=== PATIENT | female | born 1970 | race African-American/Black ===

== ENCOUNTER 2018-06-02 15:20 | Emergency (ER) | payer SELFPAY ==
[~2018-06-02] VITALS: Ht 175.3 cm; Wt 97.3 kg
[~2018-06-02 15:20] MED LIST: GLUCOPHAGE500 MG PO; INSULIN PEN; PRINIVIL10 MG PO
[2018-06-02 15:42] VITALS: BP 137/89; Ht 175.3 cm; Wt 97.3 kg
== END 2018-06-02 18:39 | disposition left against medical advice (07) ==
LOC: D.ER 15:20
DX: M54.9 Dorsalgia, unspecified (principal)

== ENCOUNTER → 2018-08-12 08:57 | Outpatient (CLI) | payer MEDICAID ==
[2018-06-02 15:42] VITALS: BMI 31.6
== END | disposition home or self-care (01) ==
LOC: D.HCCARDIO 08:57
DX: R07.89 Other chest pain (principal)

== ENCOUNTER 2018-08-16 16:20 | Emergency (ER) | payer MEDICAID ==
[~2018-08-16] VITALS: Ht 175.3 cm; Wt 95.5 kg
[2018-08-16 16:22] VITALS: Ht 175.3 cm; Wt 95.5 kg
[2018-08-16 17:10] LABS: BASOPHILS 0.3 % (0-2); EOSINOPHILS 0.7 % (0-7); HEMATOCRIT 36.9 % (36.0-48.0); HEMOGLOBIN 12.2 g/dL (12-16); IMMATURE GRANULOCYTES 0.1 % (0-5); LYMPHOCYTES 33.2 % (15-50); MCHC 33.1 g/dL (31.0-37.0); MCV 84.8 fL (80.0-100.0); MONOCYTES 6.7 % (2-11); PLATELET COUNT 197 10x3/uL (130-400); RBC 4.35 10x6/uL (4.00-5.40); WBC 9.2 10x3/uL (4.8-10.8)
[2018-08-16 17:20] LABS: INR 0.91 (0.85-1.17); PROTIME 11.8 SECONDS (11.6-15.0)
[2018-08-16 17:41] LABS: ALBUMIN 2.9 g/dL (3.4-5.0); ALKALINE PHOSPHATASE 186 U/L (46-116); ALT (SGPT) 12 U/L (10-68); BILIRUBIN - TOTAL 0.15 mg/dL (0.2-1.3); CALC OSMOLALITY 295 mosm/kg (275-300); CALCIUM 8.9 mg/dL (8.5-10.1); CARBON DIOXIDE 28.4 mmol/L (21.0-32.0); CHLORIDE - SERUM 100 mmol/L (98-107); CKMB 0.3 U/L (0.0-3.6); CREATINE KINASE 42 UL (21-215); CREATININE - SERUM 0.9 mg/dL (0.6-1.3); MAGNESIUM - SERUM 2.1 mg/dL (1.8-2.4); PROTEIN - SERUM 7.2 g/dL (6.4-8.2); SODIUM 137 mmol/L (136-145); TROPONIN-I < 0.017 ng/mL (0.000-0.060); UREA NITROGEN 12 mg/dL (7-18); eGFR NON AFRICAN AMERICAN 71 mL/min (90-120)
[2018-08-16 17:53] LABS: GLUCOSE 497 mg/dL (74-106)
[2018-08-16] MEDS ORDERED: ZOFRAN ODT4 MG/UDTAB PO (19:41)
[2018-08-16] MEDS ORDERED: BACLOFEN20 M1 PO (19:41)
[2018-08-16 21:55] VITALS: BP 106/71
== END 2018-08-16 21:55 | disposition home or self-care (01) ==
LOC: D.ER 16:20
PROVIDERS: Emergency Medicine
DX: R07.89 Other chest pain (principal); E11.8 Type 2 diabetes mellitus with unspecified complications; R06.02 Shortness of breath; F17.200 Nicotine dependence, unspecified, uncomplicated

== ENCOUNTER 2018-08-26 10:57 | Outpatient (CLI) | payer MEDICAID ==
[~2018-08-26] VITALS: Ht 175.3 cm; Wt 95.5 kg
--- NOTE | ~2018-08-26 | HEMODYNAMI ---
PATIENT:SORAYA GONZALEZ MEDICAL RECORD: [id number] : 74 LOCATION:[facility] ADMISSION DATE: 08/26/18 Generatedon:08/26/201814:38 Patient name: SORAYA GONZALEZ Patient #: [id number] SSN: : 1970 Date of study: 08/26/2018 Page: Of Hemodynamic Procedure Report Patient Data Patient Demographics Procedure consent was obtained First Name: SORAYA Gender: Female Last Name: CARLOS : 1970 Middle Initial: D Age: 48 year(s) Patient #: [id number] Race: Black Additional ID: [id number] Contact details [address]: [address] [place] [address] State: [place] City: [place] Zip code: [address] Past Medical History Allergies Allergen Reaction Date Comments Reported Aspirin 08/26/2018 Admission Admission Data Admission Date: 08/26/2018 Admission Time: 10:57 Height (in.): 69 BSA: 2.11 (m2) Height (cm.): 175.26 BMI: 31.07 (kg/m2) Weight (lbs.): 210.43 Weight (kg.): 95.45 Lab Results Lab Result Date: 08/26/2018 Lab Result Time: 0:00 Biochemistry Name Units Result Min Max BUN mg/dl 10 --(-*--)-- 7 18 Creatinine mg/dl 0.7 --(*---)-- 0.6 1.3 CBC Name Units Result Min Max Hemoglobin g/dl 12.8 -*(----)-- 13.5 17.5 Procedure Procedure Types Cath Procedure Diagnostic Procedure [facility] w/Coronaries PCI Procedure Coronary Stent Coronary Stent Initial Procedure Description Procedure Date Procedure Date: 08/26/2018 Procedure Start Time: 14:03 Procedure End Time: 14:33 Procedure Staff Name Function Alfred Nunez MD Performing Physician Quincy Moise RT Monitor Yamila Rivas RT Scrub Jim Watts RN Nurse Procedure Data Cath Procedure Fluoroscopy Diagnostic fluoroscopy Total fluoroscopy Time: 6.4 time: 6.4 min min Diagnostic fluoroscopy Total fluoroscopy dose: 549 dose: 549 mGy mGy Contrast Material Contrast Material Type Amount (ml) Isovue 300 115 Entry Location Entry Primary Successful Side Size Upsize Upsize Entry Closure Pete ccessful Closure Location (Fr) 1 (Fr) 2 (Fr) Remarks Device Remarks Radial Right 6 Fr Mechanical artery Short Compression Estimated blood loss: 10 ml Diagnostic catheters Device Type Used For End Catheter Placement DIAGNOSTIC Bagley 110cm 5 Procedure Fr catheter ([id number]) DIAGNOSTIC AR MOD 5Fr Procedure Catheter ([id number]) Procedure Complications No complications Procedure Medications Medication Administration Route Dosage Oxygen etCO2 Nasal cannula 3 l/min Heparin Flush Bag added to field 2 bags (1000units/500ml NS) 0.9% NaCl I.V. 100 ml/hr Lidocaine 2% added to field 20 Radial Cocktail added to field 1 syringe (Verapomil 2mg/Nitro 400mcg/Heparin 1500units) Fentanyl I.V. 50 mcg Versed I.V. 1 mg Fentanyl I.V. 50 mcg Versed I.V. 1 mg Radial Cocktail I.A. 1 syringe (Verapomil 2mg/Nitro 400mcg/Heparin 1500units) Fentanyl I.V. 50 mcg Fentanyl I.V. 50 mcg Heparin Bolus I.V. 9500 units Nitroglycerin IC/IA I.C. 100 mcg Versed I.V. 2 mg Brilinta P.O. 180 mg Hemodynamics Rest BSA: 2.11 (m2) HGB: 12.8 (g/dl) O2 Consumption: Estimated: 223.88 (ml/min) O2 Co nsumption indexed: Estimated:106.1 (ml/min/m) Heart Rate: 88 (bpm) Pressure Samples Time Site Value (mmHg) Purpose Heart Use Rate(bpm) 14:06 LV 114/-7,-3 Snapshot 94 14:08 AO 111/74(90) Snapshot 97 Gradients Valve Time Site Site Mean SEP/DFP Peak To Heart Use 1 2 (mmHg) (sec/min) Peak Rate (mmHg) (bpm) Aortic 14:06 LV AO 79 Aortic 14:06 LV AO 61 Snapshots Pre Cath Intra NCS Post Cath Vital Signs Time Heart Resp SPO2 etCO2 NIBP (mmHg) Rhythm Pain Sedation Rate (ipm) (%) (mmHg) Status Level (bpm) 13:46:41 104 16 97 0 169/106(142) NSR 0 (11) 10(A) , No pain 13:51:03 99 16 96 0 165/102(134) NSR 0 (11) 10(A) , No pain 13:55:19 91 17 97 40.5 147/99(127) NSR 0 (11) 10(A) , No pain 13:59:34 92 16 96 38.2 137/87(119) NSR 0 (11) 10(A) , No pain 14:03:43 92 17 96 47.2 143/90(122) NSR 0 (11) 10(A) , No pain 14:07:51 96 16 96 40.5 112/78(93) NSR 0 (11) 9(A) , No pain 14:11:57 97 17 94 40.4 118/80(96) NSR 0 (11) 9(A) , No pain 14:16:05 100 17 94 42.7 122/84(102) NSR 0 (11) 9(A) , No pain 14:20:08 98 17 95 46.4 109/78(92) NSR 0 (11) 9(A) , No pain 14:24:14 99 17 95 43.5 105/75(89) NSR 0 (11) 9(A) , No pain 14:28:18 100 16 96 47.2 122/79(104) NSR 0 (11) 9(A) , No pain 14:32:26 98 16 97 41.2 122/82(96) NSR 0 (11) 9(A) , No pain 14:35:37 101 17 90 39.7 124/86(106) NSR 0 (11) 9(A) , No pain Medications Time Medication Route Dose Verified Delivered Reason Not es Effectiveness by by 13:52:12 Oxygen etCO2 3 l/min Alfred Fernandez Per physician Nasal Enrique Watts RN cannula 13:52:21 Heparin Flush added 2 bags Alfred Fernandez used for Bag to Enrique Watts scheduling assistant (1000units/500ml field NS) 13:53:02 0.9% NaCl I.V. 100 Alfredmarcia Fernandez Per physician ml/hr Enrique Watts RN 13:53:13 Lidocaine 2% added 20ml Alfred Jim used for to vial Enrique Watts RN procedure field 13:53:38 Radial Cocktail added 1 Alfred Jim used for (Verapomil to syringe Enrique Watts RN procedure 2mg/Nitro field 400mcg/Heparin 1500units) 13:58:30 Fentanyl I.V. 50 mcg Alfred Jim for sedation Enrique Watts RN 13:58:34 Versed I.V. 1 mg Alfred Jim for sedation Enrique Watts RN 14:03:06 Fentanyl I.V. 50 mcg Alfred Jim for sedation Enrique Watts RN 14:03:09 Versed I.V. 1 mg Alfred Jim for sedation Enrique Watts RN 14:04:25 Radial Cocktail I.A. 1 Alfred Alfred for (Verapomil syringe Enrique Nunez MD vasodilation 2mg/Nitro 400mcg/Heparin 1500units) 14:06:27 Fentanyl I.V. 50 mcg Alfred Jim for sedation Enrique Watts RN 14:11:05 Fentanyl I.V. 50 mcg Alfred Jim for sedation Enrique Watts RN 14:13:30 Versed I.V. 2 mg Alfred Jim for sedation Enrique Watts RN 14:17:35 Heparin Bolus I.V. 9500 Alfred Jim for units Enrique Watts RN anticoagulation 14:23:07 Nitroglycerin I.C. 100 mcg Alfred Alfred for IC/IA Enrique Nunez MD vasodilation 14:32:42 Brilinta P.O. 180 mg Alfred Jim for Enrique Watts RN antiplatelet therapy Procedure Log Time Note 13:15:26 Diagnostic Cath status Elective 13:15:28 Signed procedure consent form obtained from patient. 13:31:26 Time tracking: Regular hours (M-F 7:00 - 5:00) 13:31:31 Plan of Care:Hemodynamics will remain stable., Cardiac rhythm will remain stable., Comfort level will be maintained., Respiratory function will remain adequate., Patient/ family verbilizes understanding of procedure., Procedure tolerated without complication., Recovers from procedure without complications.. 13:32:53 Quincy Moise RT(R) sent for patient. Start room use. 13:33:55 H&P Date Dictated: 07/29/2018 Within 30 days and on chart., H&P Addendum completed by physician on day of procedure. (MUST COMPLETE FOR ALL OUTPATIENTS). 13:34:03 Patient allergic to Aspirin 13:34:19 Patient Height : 69 inches 13:34:21 Patient Weight : 210.43 lbs 13:36:51 Lab Result : Creatinine 0.7 mg/dl 13:36:51 Lab Result : BUN 10 mg/dl 13:36:51 Lab Result : Hemoglobin 12.8 g/dl 13:39:59 Patient received from Pre/Post Procedure Room to CCL 3 Alert and oriented. Tansferred to table in Supine position. 13:40:00 Warm blankets applied, and joseph hugger turned on for patient comfort. 13:40:01 Correct patient and procedure confirmed by team. 13:40:24 ECG and BP/O2 sat monitors applied to patient. 13:45:25 Vital chart was started 13:52:12 Oxygen 3 l/min etCO2 Nasal cannula was administered by Jim Watts RN; Per physician; 13:52:21 Heparin Flush Bag (1000units/500ml NS) 2 bags added to field was administered by Jim Watts RN; used for procedure; 13:52:47 Baseline sample Acquired. 13:52:50 Rhythm: sinus rhythm 13:52:51 Full Disclosure recording started 13:52:52 Pre-procedure instructions explained to patient. 13:52:52 Pre-op teaching completed and patient verbalized understanding. 13:52:55 Family in waiting room. 13:52:56 Patient NPO since Midnight. 13:52:58 Is the patient allergic to Iodine/contrast media? No. 13:53:01 Is patient on blood thinner?No 13:53:02 0.9% NaCl 100 ml/hr I.V. was administered by Jim Watts RN; Per physician; 13:53:02 Patient diabetic? Yes. 13:53:03 If diabetic: On Metformin? Yes 13:53:05 If on Metformin: Last Dose? 08/25/2018 13:53:13 Lidocaine 2% 20ml vial added to field was administered by Jim Watts RN; used for procedure; 13:53:38 Radial Cocktail (Verapomil 2mg/Nitro 400mcg/Heparin 1500units) 1 syringe added to field was administered by Jim Watts RN; used for procedure; 13:53:43 Patient not . Patient has had hysterectomy. 13:53:55 Previous problem with sedation/anesthesia? No ? 13:54:08 Snore? Yes 13:54:09 Sleep apnea? No 13:54:10 Deviated septum? No 13:54:10 Opens mouth fully? Yes 13:54:12 Sticks out tongue? Yes 13:54:13 Airway obstruction? No ? 13:54:15 Dentures? No ? 13:54:18 Pre procedure: right dorsailis pedis pulse 1+ Palpable, but thready & weak; easily obliterated 13:54:20 Modified Bo's test Ulnar < 7 seconds 13:54:23 Patient pain scale 0/10 ?. 13:54:26 IV patent on arrival in left hand with 0.9% NaCl at [facility]. 13:54:28 Lab results completed and on chart. 13:54:31 Right Radial & Right Groin area was prepped with chlora-prep and draped in sterile fashion 13:54:32 Alarms reviewed by R. N. 13:54:33 Sharps counted by scrub and verified by R.N. 13:54:36 Use device set Radial Dx or PCI 13:54:38 Tegaderm 4 x 4 (1626W) opened to sterile field. 13:54:38 ACIST Manifold (89140) opened to sterile field. 13:54:40 ACIST Hand Control (40433) opened to sterile field. 13:54:41 ACIST Syringe (27976) opened to sterile field. 13:54:41 Medline Cath Pack ([id number]) opened to sterile field. 13:54:41 Bag Decanter (2001S) opened to sterile field. 13:54:42 DIAGNOSTIC WIRE .035 260cm J wire (532389) opened to sterile field. 13:54:42 MBrace Wrist Support ([id number]) opened to sterile field. 13:54:43 NEEDLE Cook 21G 4cm Radial (R88134) opened to sterile field. 13:54:47 SHEATH 6FR Slender (58-8204) opened to sterile field. 13:58:09 --------ALL STOP TIME OUT------ 13:58:09 Final Timeout: patient, procedure, and site verified with staff and physician. All members of the team are in agreement. 13:58:11 Right Radial & Right Groin site verified by team. 13:58:14 Physical assessment completed. ASA score P 2 - A patient with mild systemic disease as per Alfred Nunez MD. 13:58:17 Sedation plan: IV Moderate Sedation Medication:Versed, Fentanyl 13:58:30 Fentanyl 50 mcg I.V. was administered by Jim Watts RN; for sedation; 13:58:34 Versed 1 mg I.V. was administered by Jim Watts RN; for sedation; 13:58:50 Zero performed for pressure channel P1 14:02:58 Procedure started. 14:03:03 Local anesthetic to right radial artery with Lidocaine 2% by Alfred Nunez MD.INITIAL ACCESS ONLY 14:03:06 Fentanyl 50 mcg I.V. was administered by Jim Watts RN; for sedation; 14:03:09 Versed 1 mg I.V. was administered by Jim Watts RN; for sedation; 14:04:00 A 6 Fr Short sheath was inserted into the Right Radial artery 14:04:25 Radial Cocktail (Verapomil 2mg/Nitro 400mcg/Heparin 1500units) 1 syringe I.A. was administered by Alfred Nunez MD; for vasodilation; 14:05:34 A DIAGNOSTIC Bagley 110cm 5 Fr catheter (210928) was advanced over the wire and used for Procedure. 14:06:10 LV angiography performed. 14:06:11 LV gram done using BARRY 14:06:27 Fentanyl 50 mcg I.V. was administered by Jim Watts RN; for sedation; 14:06:43 EF : 50 % 14:06:45 LV hemodynamics recorded. 14:06:50 Injector settings: Ml/sec: 7, Volume: 15, 14:07:30 LCA angiography performed. 14:10:39 Catheter exchanged over wire. 14:11:05 Fentanyl 50 mcg I.V. was administered by Jim Watts RN; for sedation; 14:11:26 A DIAGNOSTIC AR MOD 5Fr Catheter ([id number]) was advanced over the wire and used for Procedure. 14:12:01 RCA angiography performed. 14:12:46 Catheter exchanged over wire. 14:12:49 Use device set ENRIQUE PCI 14:13:00 INFLATOR Merit BasixCompak (AU7208) opened to sterile field. 14:13:01 TUBING High Pressure Extension Tubing (Enrique) (LL8225B) opened to sterile field. 14:13:14 BMW 300cm Mauldin 2 J wire ([id number]) opened to sterile field. 14:13:30 Versed 2 mg I.V. was administered by Jim Watts RN; for sedation; 14:14:44 GUIDE 6FR AR 1.0 catheter (SY9BD41) opened to sterile field. 14:17:04 6 Fr AR 1 guide catheter was inserted over the wire 14:17:19 BMW wire advanced. 14:17:35 Heparin Bolus 9500 units I.V. was administered by Jim Watts RN; for anticoagulation; 14:18:35 Wire advanced across lesion. 14:21:17 Inflate balloon Inflation number: 1 A EUPHORA 2.5 x 30 Balloon ([id number]) was prepped and advanced across the Mid RCA, then inflated to 10 CHELSIE for 0:10 (min:sec). 14:23:07 Nitroglycerin IC/IA 100 mcg I.C. was administered by Alfred Nunez MD; for vasodilation; 14:23:43 Balloon removed over the wire. 14:25:46 Place stent Inflation Number: 2 A DIANDRA RX 2.75 x 38 stent ([id number]) was prepped and advanced across the Mid RCA. The stent was deployed at 13 CHELSIE for 0:10 (min:sec). 14:27:23 Stent catheter was removed intact over wire. 14:27:24 Wire removed. 14:27:25 Guide catheter removed. 14:28:54 TR BAND Standard ([id number]) opened to sterile field. 14:29:03 Sheath removed intact; hemostasis achieved with Mechanical Compression to the Right Radial artery. 14:29:05 Procedure ended.(Physican Out) 14:29:34 Fluoroscopy time 06.40 minutes. 14::41 Flurop Dose total: 549 14::41 Fluoroscopy dose: 549 mGy 14:29:45 Contrast amount:Isovue 300 115ml. 14:30:11 Sharps counted by scrub and verified by R.N. 14:30:14 Insertion/operative site no bleeding no hematoma. 14:30:22 TR band inflated with 11cc of air. 14:30:24 Post Procedure Pulses reassessed and unchanged 14:30:26 Post-procedure physical assessment completed. ASA score P 2 - A patient with mild systemic disease as per Alfred Nunez MD. 14:30:28 Post procedure rhythm: unchanged. 14:30:31 Estimated blood loss: 10 ml 14:30:32 Post procedure instruction explained to patient.Patient verbalizes understanding. 14:30:33 Patient needs reinforcement of post procedure teaching. 14:30:40 Procedure type changed to Cath procedure, Diagnostic procedure, LHC, LHC w/Coronaries, PCI procedure, Coronary Stent, Coronary Stent Initial 14:30:41 Procedure and supply charges have been captured, reviewed, submitted and are correct. 14:30:44 Procedure Complication : No complications 14:32:42 Brilinta 180 mg P.O. was administered by Jim Watts RN; for antiplatelet therapy; 14:33:17 Vital chart was stopped 14:33:18 See physician's report for complete and final results. 14:33:33 Report given to Pre/Post Procedure Room. 14:33:37 Patient transfered to Pre/Post Procedure Room with Stretcher. 14:33:39 Procedure ended. 14:33:39 Full Disclosure recording stopped 14:38:27 End room use (Document Last) Intervention Summary Intervention Notes Time ActionType Lesion and Equipment Used Action# Pressure Duration Attributes 14:21:17 Inflate Mid RCA EUPHORA 2.5 x 1 10 00:10 balloon 30 Balloon ([id number]) 14:25:46 Place stent Mid RCA DIANDRA RX 2.75 x 2 13 00:10 38 stent ([id number]) Device Usage Item Name Manufacture Quantity Catalog [facility] Lot# / Number Charge Number Stock Stock Serial# Code Tegaderm 4 x 4 3M 1 [id number] [id number] 371914 5 (1626W) ACIST Manifold Acist 1 55902 913326 563279 703927 5 (03279) Medical Systems Inc ACIST Hand Acist 1 72081 143945 917958 398251 5 Control Medical (28421) Systems Inc ACIST Syringe Acist 1 65654 885334 829753 339762 20 (56944) Medical Systems Inc Medline Cath Medline 1 [id number] 609285 57007 961955 5 Pack ([id number]) Bag Decanter Microtek 1 120264 93299 820851 5 () Medical Inc. DIAGNOSTIC St [place] 1 324130 907336 394544 539685 30 WIRE .035 260cm J wire (773099) MBrace Wrist Advanced 1 140-0250-00 524598 59973 698088 5 Support Vascular (133287035) Dynamics NEEDLE Cook Cook Medical 1 U40915 407360 822140 921321 5 21G 4cm Radial (E21783) SHEATH 6FR Terumo 1 [id number] 165042 644713 571167 5 Slender (80-1060) DIAGNOSTIC Terumo 1 40-5013 807024 244958 114593 5 Bagley 110cm 5 Fr catheter (700338) DIAGNOSTIC AR Cardinal 1 [id number] 276576 278712 411255 15 MOD 5Fr Health Catheter (940602Z) INFLATOR Merit Merit 1 IP5528 917974 182776 910221 15 Language Cloud Medical (XY8342) TUBING High Merit 1 [id number] 991579 93129 813742 10 Pressure Medical Extension Tubing (Nunez) (TM2046M) BMW 300cm Peterson 1 [id number] 399433 626782 163893 5 Mauldin 2 J Vascular wire (8975662U) GUIDE 6FR AR Medtronic 1 [id number] 492564 81015 242701 1 1.0 catheter (NM1HI52) EUPHORA 2.5 x Medtronic 1 [id number] 474062 092036 830034 5 [id number] 30 Balloon (LVX9703S) DIANDRA RX 2.75 x Medtronic 1 [id number] 268635 1043141 431957 5 [id number] 38 stent ([id number]) TR BAND Terumo 1 [id number] 250104 219427 443183 40 Standard (AFU44TAB) Signature Audit [place] Stage Time Signature Unsigned Intra-Procedure 08/26/2018 Quincy Moise 2:38:48 PM RT(R) Signatures Monitor : Quicny Moise RT Signature : Date : Time : [facility] [address] [place] [address]
[~2018-08-26 10:57] MED LIST changes: +BACLOFEN20 M1 PO; +ZOFRAN ODT4 MG/UDTAB PO
[2018-08-26] MEDS ORDERED: NEURONTIN 400400 MG PO (11:24)
[2018-08-26] MEDS ORDERED: CYCLOBENZAPRINE10 MG PO (11:24)
[2018-08-26] MEDS ORDERED: NOVOLOG100 UNIT/1 SQ (11:25)
[2018-08-26] MEDS ORDERED: LOPRESSOR25 MG PO (11:26)
[2018-08-26 11:35] VITALS: BP 132/78; Ht 175.3 cm; Wt 95.5 kg
[2018-08-26 11:52] LABS: BASOPHILS 0.4 % (0-2); EOSINOPHILS 1.3 % (0-7); HEMATOCRIT 39.2 % (36.0-48.0); HEMOGLOBIN 12.8 g/dL (12-16); IMMATURE GRANULOCYTES 0.1 % (0-5); LYMPHOCYTES 37.1 % (15-50); MCH 27.6 pg (26.0-34.0); MCHC 32.7 g/dL (31.0-37.0); MCV 84.7 fL (80.0-100.0); MONOCYTES 5.3 % (2-11); NEUTROPHILS 55.8 % (40-80); PLATELET COUNT 229 10x3/uL (130-400); RBC 4.63 10x6/uL (4.00-5.40); RDW 13.3 % (11.5-14.5); WBC 8.5 10x3/uL (4.8-10.8)
[2018-08-26 11:58] LABS: CALC OSMOLALITY 288 mosm/kg (275-300); CALCIUM 9.2 mg/dL (8.5-10.1); CARBON DIOXIDE 28.5 mmol/L (21.0-32.0); CHLORIDE - SERUM 102 mmol/L (98-107); CREATININE - SERUM 0.7 mg/dL (0.6-1.3); GLUCOSE 253 mg/dL (74-106); POTASSIUM - SERUM 4.1 mmol/L (3.5-5.1); SODIUM 141 mmol/L (136-145); UREA NITROGEN 10 mg/dL (7-18); eGFR NON AFRICAN AMERICAN > 90 mL/min (90-120)
[2018-08-26] MEDS ORDERED: BRILINTA90 MG PO (14:57)
[2018-08-27] MEDS ORDERED: NORCO 5/325 TAB1 TAB PO (05:52)
== END 2018-08-26 19:25 | disposition home or self-care (01) ==
LOC: D.CATH 10:57
PROVIDERS: Internal Medicine Cardiovascular Disease
DX: I25.119 Atherosclerotic heart disease of native coronary artery with unspecified angina pectoris (principal); R94.30 Abnormal result of cardiovascular function study, unspecified; Z01.812 Encounter for preprocedural laboratory examination

== ENCOUNTER 2018-08-27 03:43 | Emergency (ER) | payer MEDICAID ==
[~2018-08-27] VITALS: Ht 175.3 cm; Wt 95.5 kg
[~2018-08-27 03:43] MED LIST changes: +BRILINTA90 MG PO; +CYCLOBENZAPRINE10 MG PO; +LOPRESSOR25 MG PO; +NEURONTIN 400400 MG PO; +NOVOLOG100 UNIT/1 SQ
[2018-08-27 03:47] VITALS: Ht 175.3 cm; Wt 95.5 kg
[2018-08-27] MEDS ORDERED: NORCO 5/325 TAB1 TAB PO (05:52)
[2018-08-27 06:04] VITALS: BP 138/66
== END 2018-08-27 06:05 | disposition home or self-care (01) ==
LOC: D.ER 03:43
DX: S60.211A Contusion of right wrist, initial encounter (principal); X58.XXXA Exposure to other specified factors, initial encounter; Y93.89 Activity, other specified; Y92.89 Other specified places as the place of occurrence of the external cause; G89.18 Other acute postprocedural pain

== ENCOUNTER 2018-11-11 18:01 | Emergency (ER) | payer MEDICAID ==
[~2018-11-11] VITALS: Ht 175.3 cm; Wt 93.6 kg
[~2018-11-11 18:01] MED LIST changes: +NORCO 5/325 TAB1 TAB PO
[2018-11-11 18:52] VITALS: Ht 175.3 cm; Wt 93.6 kg
[2018-11-11] MEDS ORDERED: ULTRAM50 MG PO (18:59)
[2018-11-11] MEDS ORDERED: BYDUREON P2 MG/0.65 SC (18:59)
[2018-11-11 19:46] LABS: BASOPHILS 0.1 % (0-2); EOSINOPHILS 0.6 % (0-7); HEMATOCRIT 37.1 % (36.0-48.0); HEMOGLOBIN 12.4 g/dL (12-16); IMMATURE GRANULOCYTES 0.1 % (0-5); LYMPHOCYTES 39.1 % (15-50); MCH 27.8 pg (26.0-34.0); MCHC 33.4 g/dL (31.0-37.0); MCV 83.2 fL (80.0-100.0); MEAN PLATELET VOLUME 10.8 fL (7.4-10.4); NEUTROPHILS 54.1 % (40-80); PLATELET COUNT 187 10x3/uL (130-400); RBC 4.46 10x6/uL (4.00-5.40); RDW 13.1 % (11.5-14.5); WBC 6.8 10x3/uL (4.8-10.8)
[2018-11-11 19:59] LABS: APPEARANCE HAZY (CLEAR); BILIRUBIN NEGATIVE (NEGATIVE); COLOR YELLOW (YELLOW); GLUCOSE 100 mg/dL (NEGATIVE); KETONE NEGATIVE (NEGATIVE); NITRITE NEGATIVE (NEGATIVE); PROTEIN NEGATIVE (NEGATIVE); UROBILINOGEN NORMAL (NORMAL)
[2018-11-11 20:01] LABS: EPITHELIAL CELLS 0-5 /hpf (0-5); RED CELLS - URINE 0-5 /hpf (0-5)
[2018-11-11 20:02] LABS: ALBUMIN 3.1 g/dL (3.4-5.0); ALKALINE PHOSPHATASE 158 U/L (46-116); ALT (SGPT) 21 U/L (10-68); BILIRUBIN - TOTAL 0.28 mg/dL (0.2-1.3); CALC OSMOLALITY 276 mosm/kg (275-300); CALCIUM 8.7 mg/dL (8.5-10.1); CARBON DIOXIDE 29.1 mmol/L (21.0-32.0); CHLORIDE - SERUM 95 mmol/L (98-107); GLUCOSE 292 mg/dL (74-106); POTASSIUM - SERUM 4.1 mmol/L (3.5-5.1); PROTEIN - SERUM 7.6 g/dL (6.4-8.2); SODIUM 132 mmol/L (136-145); UREA NITROGEN 14 mg/dL (7-18); eGFR NON AFRICAN AMERICAN 63 mL/min (90-120)
[2018-11-11 20:02] LABS: BACTERIA MODERATE /hpf (NONE SEEN); MUCUS <1+ /lpf (NONE SEEN)
[2018-11-11 20:05] LABS: AMYLASE - SERUM 13 U/L (25-115); MAGNESIUM - SERUM 1.7 mg/dL (1.8-2.4); TROPONIN-I < 0.017 ng/mL (0.000-0.060)
[2018-11-11 20:10] LABS: LIPASE 41 U/L (73-393)
[2018-11-11 20:42] LABS: KETONE - SERUM NEGATIVE (NEGATIVE)
[2018-11-11] MEDS ORDERED: SULFAMETHOXAZOL1 TA3 PO (21:46)
[2018-11-11 21:56] VITALS: BP 158/85
== END 2018-11-11 21:56 | disposition home or self-care (01) ==
LOC: D.ER 18:01
PROVIDERS: Family Medicine
DX: E11.65 Type 2 diabetes mellitus with hyperglycemia (principal); Z79.4 Long term (current) use of insulin; A59.9 Trichomoniasis, unspecified; N39.0 Urinary tract infection, site not specified

== ENCOUNTER 2019-04-12 14:35 | Emergency (ER) | payer MEDICARE ==
[~2019-04-12] VITALS: Ht 175.3 cm; Wt 89.5 kg
[~2019-04-12 14:35] MED LIST changes: +BYDUREON P2 MG/0.65 SC; +SULFAMETHOXAZOL1 TA3 PO; +ULTRAM50 MG PO
[2019-04-12 14:48] VITALS: Ht 175.3 cm; Wt 89.5 kg
[2019-04-12 15:30] LABS: BASOPHILS 0.3 % (0-2); HEMATOCRIT 34.9 % (36.0-48.0); HEMOGLOBIN 11.6 g/dL (12-16); IMMATURE GRANULOCYTES 0.1 % (0-5); LYMPHOCYTES 31.1 % (15-50); MCH 28.2 pg (26.0-34.0); MCHC 33.2 g/dL (31.0-37.0); MCV 84.7 fL (80.0-100.0); MEAN PLATELET VOLUME 10.4 fL (7.4-10.4); MONOCYTES 6.4 % (2-11); NEUTROPHILS 60.1 % (40-80); PLATELET COUNT 194 10x3/uL (130-400); RBC 4.12 10x6/uL (4.00-5.40); RDW 13.2 % (11.5-14.5); WBC 11.6 10x3/uL (4.8-10.8)
[2019-04-12 15:42] LABS: APTT 32.2 SECONDS (22.8-39.4); INR 0.88 (0.85-1.17); PROTIME 11.5 SECONDS (11.6-15.0)
[2019-04-12 15:45] LABS: ALBUMIN 3.3 g/dL (3.4-5.0); ALKALINE PHOSPHATASE 161 U/L (46-116); ALT (SGPT) 11 U/L (10-68); BILIRUBIN - TOTAL 0.17 mg/dL (0.2-1.3); CALC OSMOLALITY 275 mosm/kg (275-300); CALCIUM 9.1 mg/dL (8.5-10.1); CARBON DIOXIDE 26.9 mmol/L (21.0-32.0); CHLORIDE - SERUM 104 mmol/L (98-107); CREATININE - SERUM 0.6 mg/dL (0.6-1.3); POTASSIUM - SERUM 3.7 mmol/L (3.5-5.1); PROTEIN - SERUM 7.6 g/dL (6.4-8.2); SODIUM 136 mmol/L (136-145); UREA NITROGEN 14 mg/dL (7-18); eGFR NON AFRICAN AMERICAN > 90 mL/min (90-120)
[2019-04-12 15:49] LABS: GLUCOSE 159 mg/dL (74-106)
[2019-04-12 15:56] LABS: CKMB 0.8 U/L (0.0-3.6); CREATINE KINASE 57 UL (21-215)
[2019-04-12 16:04] LABS: TROPONIN-I < 0.017 ng/mL (0.000-0.060)
[2019-04-12 17:39] VITALS: BP 172/85
== END 2019-04-12 17:23 | disposition home or self-care (01) ==
LOC: D.ER 14:35
PROVIDERS: Family Medicine
DX: Z71.1 Person with feared health complaint in whom no diagnosis is made (principal)

== ENCOUNTER 2019-04-23 09:00 | Outpatient (CLI) | payer MEDICARE ==
[2019-04-12 14:48] VITALS: BMI 29.1
== END 2019-04-23 10:00 | disposition home or self-care (01) ==
LOC: D.MAMMO 09:00
PROVIDERS: ATTEND Family Medicine
DX: Z12.31 Encounter for screening mammogram for malignant neoplasm of breast (principal)

== ENCOUNTER 2019-05-05 21:45 | Emergency (ER) | payer MEDICARE ==
[~2019-05-05] VITALS: Ht 175.3 cm; Wt 82.7 kg
[2019-05-05 21:49] VITALS: Ht 175.3 cm; Wt 82.7 kg
[2019-05-05 22:24] LABS: BASOPHILS 0.2 % (0-2); EOSINOPHILS 1.4 % (0-7); HEMATOCRIT 33.6 % (36.0-48.0); HEMOGLOBIN 11.3 g/dL (12-16); IMMATURE GRANULOCYTES 0.2 % (0-5); LYMPHOCYTES 39.4 % (15-50); MCH 28.4 pg (26.0-34.0); MCHC 33.6 g/dL (31.0-37.0); MCV 84.4 fL (80.0-100.0); MEAN PLATELET VOLUME 10.8 fL (7.4-10.4); MONOCYTES 6.9 % (2-11); NEUTROPHILS 51.9 % (40-80); PLATELET COUNT 208 10x3/uL (130-400); RBC 3.98 10x6/uL (4.00-5.40); RDW 13.3 % (11.5-14.5); WBC 11.2 10x3/uL (4.8-10.8)
[2019-05-05 22:35] LABS: ALBUMIN 3.1 g/dL (3.4-5.0); ALKALINE PHOSPHATASE 160 U/L (46-116); ALT (SGPT) 13 U/L (10-68); AMYLASE - SERUM 33 U/L (25-115); BILIRUBIN - TOTAL 0.21 mg/dL (0.2-1.3); CALC OSMOLALITY 285 mosm/kg (275-300); CALCIUM 8.4 mg/dL (8.5-10.1); CARBON DIOXIDE 27.9 mmol/L (21.0-32.0); CHLORIDE - SERUM 101 mmol/L (98-107); CREATININE - SERUM 0.7 mg/dL (0.6-1.3); LIPASE 126 U/L (73-393); POTASSIUM - SERUM 3.9 mmol/L (3.5-5.1); PROTEIN - SERUM 7.2 g/dL (6.4-8.2); SODIUM 138 mmol/L (136-145); UREA NITROGEN 12 mg/dL (7-18); eGFR NON AFRICAN AMERICAN > 90 mL/min (90-120)
[2019-05-05 22:36] LABS: GLUCOSE 280 mg/dL (74-106)
[2019-05-05 22:51] LABS: APPEARANCE HAZY (CLEAR); COLOR YELLOW (YELLOW)
[2019-05-05 22:52] LABS: BACTERIA MODERATE /hpf (NONE SEEN); BILIRUBIN NEGATIVE (NEGATIVE); GLUCOSE 1000 mg/dL (NEGATIVE); KETONE NEGATIVE (NEGATIVE); MUCUS <1+ /lpf (NONE SEEN); NITRITE NEGATIVE (NEGATIVE); PROTEIN 1+ mg/dL (NEGATIVE); RED CELLS - URINE 0-5 /hpf (0-5); SPECIFIC GRAVITY 1.025 (1.005-1.020); UROBILINOGEN NORMAL (NORMAL); WHITE CELLS - URINE 0-5 /hpf (0-5)
[2019-05-06 00:50] VITALS: BP 163/85
== END 2019-05-06 00:38 | disposition home or self-care (01) ==
LOC: D.ER 21:45
PROVIDERS: Family Medicine
DX: R10.31 Right lower quadrant pain (principal); K59.00 Constipation, unspecified

== ENCOUNTER → 2019-05-11 11:50 | Outpatient (CLI) | payer MEDICARE ==
[2019-05-05 21:49] VITALS: BMI 26.9
== END | disposition home or self-care (01) ==
LOC: D.HCCECHO 05-07 10:30 → D.HCCARDIO 05-07 10:30 → D.HCCECHO 11:50
PROVIDERS: ATTEND Internal Medicine Cardiovascular Disease
DX: I42.9 Cardiomyopathy, unspecified (principal)

== ENCOUNTER 2019-06-01 08:42 | Outpatient (CLI) | payer MEDICARE, MEDICAID ==
[2019-05-05 21:49] VITALS: BMI 26.9
== END 2019-06-01 23:59 | disposition home or self-care (01) ==
LOC: D.MAMMO 08:42
PROVIDERS: ATTEND Family Medicine
DX: R92.8 Other abnormal and inconclusive findings on diagnostic imaging of breast (principal)

== ENCOUNTER 2019-08-26 22:52 | Emergency (ER) | payer MEDICARE, MEDICAID ==
[~2019-08-26] VITALS: Ht 175.3 cm; Wt 97.3 kg
[2019-08-26 23:06] VITALS: Ht 175.3 cm; Wt 97.3 kg
[2019-08-26 23:37] LABS: HEMOGLOBIN 11.7 g/dL (12-16); LYMPHOCYTES 33.1 % (15-50); MCH 28.1 pg (26.0-34.0); MCHC 32.5 g/dL (31.0-37.0); MCV 86.5 fL (80.0-100.0); MEAN PLATELET VOLUME 10.8 fL (7.4-10.4); NEUTROPHILS 61.9 % (40-80); RBC 4.16 10x6/uL (4.00-5.40); RDW 14.3 % (11.5-14.5); WBC 12.8 10x3/uL (4.8-10.8)
[2019-08-26 23:40] LABS: PLATELET COUNT 319 10x3/uL (130-400)
[2019-08-26 23:47] LABS: APTT 34.2 SECONDS (22.8-39.4); INR 0.96 (0.85-1.17); PROTIME 12.3 SECONDS (11.6-15.0)
[2019-08-26 23:54] LABS: CALC OSMOLALITY 282 mosm/kg (275-300); CALCIUM 8.8 mg/dL (8.5-10.1); CARBON DIOXIDE 25.9 mmol/L (21.0-32.0); CHLORIDE - SERUM 102 mmol/L (98-107); CREATININE - SERUM 0.5 mg/dL (0.6-1.3); POTASSIUM - SERUM 5.5 mmol/L (3.5-5.1); SODIUM 138 mmol/L (136-145); UREA NITROGEN 19 mg/dL (7-18); eGFR NON AFRICAN AMERICAN > 90 mL/min (90-120)
[2019-08-26 23:56] LABS: GLUCOSE 183 mg/dL (74-106)
[2019-08-27 00:07] LABS: ALBUMIN 3.1 g/dL (3.4-5.0); ALKALINE PHOSPHATASE 162 U/L (46-116); ALT (SGPT) 18 U/L (10-68); BILIRUBIN - TOTAL 0.39 mg/dL (0.2-1.3); CREATINE KINASE 132 UL (21-215); PRO BNP 300 pg/mL (0-125); PROTEIN - SERUM 7.3 g/dL (6.4-8.2)
[2019-08-27 00:08] LABS: TROPONIN-I < 0.017 ng/mL (0.000-0.060)
[2019-08-27] MEDS ORDERED: TYLENOL W/CODEI1 TAB PO (00:22)
[2019-08-27 00:29] LABS: CKMB 0.4 U/L (0.0-3.6)
[2019-08-27 00:32] VITALS: BP 155/74
== END 2019-08-27 00:53 | disposition home or self-care (01) ==
LOC: D.ER 22:52
PROVIDERS: Family Medicine
DX: J20.9 Acute bronchitis, unspecified (principal); E11.9 Type 2 diabetes mellitus without complications; I10 Essential (primary) hypertension; I25.10 Atherosclerotic heart disease of native coronary artery without angina pectoris; Z72.0 Tobacco use; I25.2 Old myocardial infarction; Z79.4 Long term (current) use of insulin; Z79.84 Long term (current) use of oral hypoglycemic drugs

== ENCOUNTER 2019-12-13 04:43 | Observation (INO) | payer MEDICARE, MEDICAID ==
[~2019-12-13] VITALS: Ht 175.3 cm; Wt 95.5 kg
[~2019-12-13 04:43] MED LIST changes: +TYLENOL W/CODEI1 TAB PO
--- NOTE | 2019-12-13 05:08 | NUR ---
PT CONNECTED TO ALL MONITORS. TEARFUL. STAMMERING. STROKE BAND [id number].
--- NOTE | 2019-12-13 05:20 | NUR ---
PT TO CT.
[2019-12-13 05:30] LABS: BASOPHILS 0.2 % (0-2); EOSINOPHILS 0.4 % (0-7); HEMATOCRIT 33.2 % (36.0-48.0); HEMOGLOBIN 10.3 g/dL (12-16); IMMATURE GRANULOCYTES 0.4 % (0-5); LYMPHOCYTES 8.2 % (15-50); MCH 27.5 pg (26.0-34.0); MCV 88.8 fL (80.0-100.0); MEAN PLATELET VOLUME 9.9 fL (7.4-10.4); MONOCYTES 8.9 % (2-11); NEUTROPHILS 81.9 % (40-80); RBC 3.74 10x6/uL (4.00-5.40); RDW 13.4 % (11.5-14.5); WBC 14.1 10x3/uL (4.8-10.8)
[2019-12-13 05:33] LABS: PLATELET COUNT 208 10x3/uL (130-400)
[2019-12-13 05:46] LABS: APTT 37.1 SECONDS (22.8-39.4); INR 0.98 (0.85-1.17); PROTIME 12.9 SECONDS (11.6-15.0)
[2019-12-13 05:48] LABS: CALC OSMOLALITY 283 mosm/kg (275-300); CALCIUM 8.6 mg/dL (8.5-10.1); CARBON DIOXIDE 26.9 mmol/L (21.0-32.0); CHLORIDE - SERUM 101 mmol/L (98-107); CREATININE - SERUM 1.1 mg/dL (0.6-1.3); POTASSIUM - SERUM 4.1 mmol/L (3.5-5.1); SODIUM 136 mmol/L (136-145); UREA NITROGEN 15 mg/dL (7-18); eGFR NON AFRICAN AMERICAN 56 mL/min (90-120)
[2019-12-13 05:50] LABS: GLUCOSE 293 mg/dL (74-106)
[2019-12-13 06:06] LABS: ALBUMIN 2.9 g/dL (3.4-5.0); ALKALINE PHOSPHATASE 172 U/L (30-120); ALT (SGPT) 18 U/L (10-68); BILIRUBIN - TOTAL 0.33 mg/dL (0.2-1.3); CKMB 0.6 U/L (0.0-3.6); CREATINE KINASE 90 UL (21-215); MAGNESIUM - SERUM 1.9 mg/dL (1.8-2.4); PRO BNP 241 pg/mL (0-125); PROTEIN - SERUM 7.5 g/dL (6.4-8.2); THYROID STIMULATING HORMONE 0.52 uIU/mL (0.36-3.74); TROPONIN-I < 0.017 ng/mL (0.000-0.060)
[2019-12-13 06:11] VITALS: BP 145/76
[2019-12-13 06:18] LABS: UDS - AMPHET NEGATIVE QUAL (NEGATIVE); UDS - BARB NEGATIVE QUAL (NEGATIVE); UDS - BENZO NEGATIVE QUAL (NEGATIVE); UDS - COCAINE NEGATIVE QUAL (NEGATIVE); UDS - OPIATE NEGATIVE QUAL (NEGATIVE); UDS - PCP NEGATIVE QUAL (NEGATIVE); UDS - THC NEGATIVE QUAL (NEGATIVE)
[2019-12-13 06:55] LABS: BILIRUBIN NEGATIVE (NEGATIVE); GLUCOSE 1000 mg/dL (NEGATIVE); KETONE NEGATIVE (NEGATIVE); NITRITE POSITIVE (NEGATIVE); SPECIFIC GRAVITY 1.015 (1.005-1.020); UROBILINOGEN NORMAL (NORMAL)
[2019-12-13 06:56] LABS: BACTERIA MANY /hpf (NEGATIVE); EPITHELIAL CELLS 0-5 /hpf (0-5); WHITE CELLS - URINE 25-50 /hpf (NEGATIVE)
[2019-12-13 07:46] VITALS: BP 140/72
--- NOTE | 2019-12-13 08:02 | NUR ---
PATIENT TO ROOM 2227 FROM ER VIA WHEELCHAIR. PATIENT IS WITHOUT DISTRESS.ASSESSMENT PER FLOW SHEET. ORIENTATION TO ROOM.CALL LIGHT IN REACH
[2019-12-13 08:44] VITALS: BP 135/77; Ht 175.3 cm; Wt 95.5 kg
[2019-12-13 11:00] LABS: CKMB 0.1 U/L (0.0-3.6); CREATINE KINASE 78 UL (21-215); TROPONIN-I < 0.017 ng/mL (0.000-0.060)
[2019-12-13 13:19] VITALS: BP 149/73
--- NOTE | 2019-12-13 15:00 | EC ---
PATIENT:SORAYA GONZALEZ DATE OF SERVICE: 12/13/19 SEX: F MEDICAL RECORD: [id number] DATE OF : 74 LOCATION:[facility] AGE OF PATIENT: 49 ADMISSION DATE: 12/13/19 REFERRING PHYSICIAN: INTERPRETING PHYSICIAN: YANELY LIU MD ECHOCARDIOGRAM REPORT ECHO CHARGES 4 ECHO COMPLETE Date: 12/13/19 CLINICAL DIAGNOSIS: MILD CHF ECHOCARDIOGRAPHIC MEASUREMENTS (adult normal given) AC root (d.<3.7cm) 3.5 cm LV Septum d (<1.2 cm> 1.3 cm Valve Excursion 1.9 cm LV Septum (systole) 1.6 cm Left Atria (s.<4.0cm> 3.9 cm LVPW d(<1.2cm) 1.7 cm RV (d.<2.3cm) 3.7 cm LVPW (sytole) 1.8 cm LV diastole(<5.6CM) 4.5 cm MV E-F(>70mm/sec) cm LV systole 3.5 cm LVOT Diameter 2.3 cm MV exc.(>10mm) 1.5 cm Est.ejection fraction (50-75%) % DOPPLER: LVIT cm/sec A 102.0cm/sec E 69.0 cm/sec LA cm/sec RVSP 15 mmHg LVOT 103 cm/sec AOP1/2T m/s Asc. Ao 121 cm/sec RVOT 95 cm/sec RA cm/sec PA 115 cm/sec AV Gradient Peak 5.90 mmHg AV Mean 2.94 mmHg AV Area 3.1 cm MV Gradient Peak 8.03 mmHg MV Mean 2.92 mmHg MV Area cm COMMENTS: Cover Machine Operator: 2 IKE FRANK Baseboard Heating Installer: 3 Dr. Ray TAPE# PACS Pericardial Effusion N DATE OF SERVICE: Adequate 2D, color flow imaging, spectral Doppler, and M-Mode. Mild LVH. LV internal dimension is normal. Wall motion is normal. EF is greater than or equal to 55%. Aortic valve is tricuspid. No evidence of stenosis by Doppler interrogation. Left atrium is normal at 3.9 cm. Mitral valve shows no prolapse. Trace MR. Right-sided chambers are grossly normal. Trace TR. ECHOCARDIOGRAM REPORT [id number] SORAYA GONZALEZ TRANSINT:[id number] Voice Confirmation ID: [id number] DOCUMENT ID: [id number] YANELY LIU MD at 1500 CC: [id number] DICTATION DATE: 12/13/19954 FRONT DESK AUXILIARY: 12/13/19 1212 ADM IN [facility] [address] [id number]
[2019-12-13 15:50] LABS: CKMB 0.4 U/L (0.0-3.6); CREATINE KINASE 75 UL (21-215)
--- NOTE | 2019-12-13 15:50 | NUR ---
REMAINS WITHOUT NEEDS.PATIENT HAS A LITTLE LESS STUTTERING WHEN SHE SPEAKS.MONITOR
[2019-12-13 15:51] LABS: TROPONIN-I < 0.017 ng/mL (0.000-0.060)
[2019-12-13 17:47] VITALS: BP 141/71
--- NOTE | 2019-12-13 18:57 | NUR ---
REMAINS WITHOUT CHANGE.CONT PLAN OF CARE
--- NOTE | 2019-12-13 19:00 | NUR ---
BEDSIDE REPORT RECEIVED AND CARE OF PT ASSUMED. ASSISTED PT UP TO USE BSC WITH MINIMAL ASSIST. POSITIONED BACK IN BED FOR COMFORT. SCD'S IN USE ON BLE. TELEMETRY IN PLACE AND READING 97 SR AT THIS ASSESSMENT. PT SPEACH CLEAR WITH STUTTERING STILL PERSISTING. IV TO LEFT AC SALINE LOCKED. WILL MONITOR FOR NEEDS.
[2019-12-13 20:00] VITALS: BP 150/81
--- NOTE | 2019-12-13 20:21 | NUR ---
HS MEDICATIONS GIVEN. FSBS 272 THIS CHECK REQUIRING COVERAGE WITH 6 UNITS OF REGULAR INSULIN PER SLIDING SCALE. WILL MONITOR FOR NEEDS.
[2019-12-13 22:02] LABS: CKMB 0.5 U/L (0.0-3.6); CREATINE KINASE 66 UL (21-215); TROPONIN-I < 0.017 ng/mL (0.000-0.060)
[2019-12-14 00:57] VITALS: BP 131/83
[2019-12-14 04:57] VITALS: BP 127/80
[2019-12-14 05:08] LABS: BASOPHILS 0.1 % (0-2); EOSINOPHILS 0.7 % (0-7); HEMATOCRIT 31.5 % (36.0-48.0); HEMOGLOBIN 9.8 g/dL (12-16); IMMATURE GRANULOCYTES 0.2 % (0-5); LYMPHOCYTES 22.3 % (15-50); MCH 27.5 pg (26.0-34.0); MCHC 31.1 g/dL (31.0-37.0); MCV 88.5 fL (80.0-100.0); MEAN PLATELET VOLUME 9.9 fL (7.4-10.4); MONOCYTES 9.6 % (2-11); NEUTROPHILS 67.1 % (40-80); PLATELET COUNT 198 10x3/uL (130-400); RBC 3.56 10x6/uL (4.00-5.40); RDW 13.1 % (11.5-14.5); WBC 10.6 10x3/uL (4.8-10.8)
[2019-12-14 05:25] LABS: ALBUMIN 2.5 g/dL (3.4-5.0); ALKALINE PHOSPHATASE 130 U/L (30-120); ALT (SGPT) 16 U/L (10-68); BILIRUBIN - TOTAL 0.36 mg/dL (0.2-1.3); CALCIUM 8.8 mg/dL (8.5-10.1); CARBON DIOXIDE 27.9 mmol/L (21.0-32.0); CHLORIDE - SERUM 103 mmol/L (98-107); POTASSIUM - SERUM 3.9 mmol/L (3.5-5.1); PROTEIN - SERUM 6.9 g/dL (6.4-8.2); SODIUM 140 mmol/L (136-145); eGFR NON AFRICAN AMERICAN 81 mL/min (90-120)
[2019-12-14 05:28] LABS: CALC OSMOLALITY 280 mosm/kg (275-300); CREATININE - SERUM 0.8 mg/dL (0.6-1.3); GLUCOSE 154 mg/dL (74-106); UREA NITROGEN 11 mg/dL (7-18)
--- NOTE | 2019-12-14 08:00 | NUR ---
ASSESSMENT PER FLOW SHEET. PATIENT IS WITHOUT DISTRESS.CALL LIGHT IN REACH
[2019-12-14 08:47] VITALS: BP 155/71
[2019-12-14 12:48] VITALS: BP 151/81
[2019-12-14 13:31] LABS: CHOL - HDL RATIO 3.1 ratio (2.3-4.1); LDL-HDL RATIO 1.9 ratio (1.5-3.5)
--- NOTE | 2019-12-14 14:52 | NUR ---
OT NOTE: PT PERFORMED BETTER TODAY. REPORTED TO THERAPIST THAT SHE HAD BEEN EXERCISING THE R SIDE AND WAS FEELING BETTER.. BED MOB WITH SBA/CGA. SIT TO STAND WITH CGA/MIN ASSIST; IMPROVEMENT NOTED WITH FUNCTIONAL USE OF R HAND.. ABLE TO AMB IN ROOM WITH MIN ASSIST. TRANSFERS WITH MIN ASSIST FOR SAFETY. IMPROVEMENT NOTED FROM YESTERDAY. PTS SPEECH ALSO NOTED WITH LESS STUDDERING THAN PREVIOUS DAY. JOSIAS GARNER, OTR/L [phone]
--- NOTE | 2019-12-14 15:27 | NUR ---
OT NOTE: PT COMPLETED SIT TO STAND WITH CGA. PT COMPLETED ADLMOB WITH CGA. PT DOING MUCH BETTER TODAY. [phone] THANK YOU,ANDERSON CONNER
[2019-12-14 17:16] VITALS: BP 145/72
[2019-12-14] MEDS ORDERED: XALATAN 0.0052.5 ML RIGHT EYE (17:29)
[2019-12-14] MEDS ORDERED: ATROPINE SULFA3.5 GM EACH EYE (17:36)
--- NOTE | 2019-12-14 18:35 | NUR ---
REMAINS WITHOUT CHANGE.CONT PLAN OF CARE
[2019-12-14 22:05] VITALS: BP 159/81
[2019-12-15 01:08] VITALS: BP 142/82
[2019-12-15 05:38] VITALS: BP 129/72
--- NOTE | 2019-12-15 06:00 | NUR ---
I have reviewed this patient and I concur with the Shift Assessment completed by the Licensed Practical Nurse today this shift.
[2019-12-15 06:06] LABS: BASOPHILS 0.2 % (0-2); EOSINOPHILS 0.9 % (0-7); HEMATOCRIT 32.3 % (36.0-48.0); IMMATURE GRANULOCYTES 0.1 % (0-5); LYMPHOCYTES 26.7 % (15-50); MCH 27.2 pg (26.0-34.0); MEAN PLATELET VOLUME 10.3 fL (7.4-10.4); MONOCYTES 12.4 % (2-11); NEUTROPHILS 59.7 % (40-80); PLATELET COUNT 215 10x3/uL (130-400); RBC 3.67 10x6/uL (4.00-5.40); RDW 13.2 % (11.5-14.5); WBC 8.5 10x3/uL (4.8-10.8)
[2019-12-15 06:46] LABS: % SATURATION 10 % (15-55); IRON 25 ug/dl (35-150); TOTAL IRON BIND CAPACITY 243 ug/dl (260-445); UNSAT IRON BIND CAPACITY 218 ug/dl (150-375)
[2019-12-15 07:03] LABS: ALBUMIN 2.5 g/dL (3.4-5.0); ALKALINE PHOSPHATASE 123 U/L (30-120); ALT (SGPT) 14 U/L (10-68); BILIRUBIN - TOTAL 0.24 mg/dL (0.2-1.3); CALC OSMOLALITY 277 mosm/kg (275-300); CALCIUM 8.9 mg/dL (8.5-10.1); CARBON DIOXIDE 28.1 mmol/L (21.0-32.0); CHLORIDE - SERUM 104 mmol/L (98-107); CREATININE - SERUM 0.8 mg/dL (0.6-1.3); FERRITIN 181 ng/mL (3-244); GLUCOSE 119 mg/dL (74-106); POTASSIUM - SERUM 3.7 mmol/L (3.5-5.1); PROTEIN - SERUM 7.1 g/dL (6.4-8.2); SODIUM 139 mmol/L (136-145); UREA NITROGEN 11 mg/dL (7-18); eGFR NON AFRICAN AMERICAN 81 mL/min (90-120)
--- NOTE | 2019-12-15 08:00 | NUR ---
PATIENT IN BED WITH IV INTACT. NO COMPLAINTS OR SIGNS OF DISTRESS. EYES CLOSED RESTING QUIETLY. CALL LIGHT WITHIN REACH.
[2019-12-15] MEDS ORDERED: LEVOFLOXACIN500 MG PO (09:31)
--- NOTE | 2019-12-15 09:50 | NUR ---
0945-I CALLED DR NARVAEZ OFFICE AND LEFT MESSAGE FOR THEM TO CALL ME BACK FOR FOLLOW UP APPT.
[2019-12-15 09:57] VITALS: BP 127/74
--- NOTE | 2019-12-15 11:00 | NUR ---
PATIENT RECIEVED DC INSTRUCTIONS. VERBALIZED UNDERSTANDING. IV REMOVED WITH CATH TIP INTACT. WAITING FOR TRANSPORTATIN FOR DC. CALL LIGHT WITHIN REACH.
--- NOTE | 2019-12-15 12:49 | NUR ---
OT NOTE: PT DOING SO MUCH BETTER TODAY. SPEECH HAS RETURNED TO NORMAL. STRENGTH AND ROM HAS IMPROVED IN R SIDE..CONTINUES WITH SOME FINE MOTOR COORDINATION DEFECITS. ABLE TO AMB IN ROOM WITH SBA; TOILETING WITH SBA; INDEP WITH BED MOB; DRESSING WITH SET UP; PT AMBULATED THROUGHOUT HALLWAY WITH SLIGHT GAIT DEVIATION DUE TO DIFFICULTY WITH VISION ( PT REPORTS THAT SHE HAS BEEN UNABLE TO TOLERATE BRIGHT LIGHT FOR LONG TIME. STATES THAT SHE ALWAYS WEARS HER BLUE BLOCKERS)... PT STATES THAT SHE HOPES TO GET TO GO HOME TODAY. WILL EDUCATE REGARDING HAND EXS. JOSIAS GARNER, OTR/L [phone]
--- NOTE | 2019-12-15 14:23 | NUR ---
OT NOTE: ANDERSON EDUCATED PT ON GM/FM HEP AND SAFETY AWARENESS. [phone] THANK YOU,ANDERSON CONNER
[2019-12-15] MEDS ORDERED: LIPITOR20 MG PO (15:57)
== END 2019-12-15 12:07 | disposition home or self-care (01) ==
LOC: D.ER 04:43 → D.MS 06:52 → OBSVTIME 06:52 → D.MS 06:52
PROVIDERS: Emergency Medicine; Family Medicine; ADMIT Internal Medicine Nephrology; ATTEND Internal Medicine Nephrology
DX: G45.9 Transient cerebral ischemic attack, unspecified (principal); E11.42 Type 2 diabetes mellitus with diabetic polyneuropathy; N39.0 Urinary tract infection, site not specified; E11.65 Type 2 diabetes mellitus with hyperglycemia; I69.851 Hemiplegia and hemiparesis following other cerebrovascular disease affecting right dominant side; D64.9 Anemia, unspecified; E66.9 Obesity, unspecified; Z68.31 Body mass index [BMI] 31.0-31.9, adult

== ENCOUNTER 2020-11-09 14:32 | Emergency (ER) | payer OTHER ==
[~2020-11-09] VITALS: Ht 175.3 cm; Wt 107.3 kg
[~2020-11-09 14:32] MED LIST changes: +ATROPINE SULFA3.5 GM EACH EYE; +LEVOFLOXACIN500 MG PO; +LIPITOR20 MG PO; +XALATAN 0.0052.5 ML RIGHT EYE
[2020-11-09 14:37] VITALS: BP 174/93; Ht 175.3 cm; Wt 107.3 kg
[2020-11-09 17:20] LABS: KETONE NEGATIVE (NEGATIVE); NITRITE NEGATIVE (NEGATIVE); UROBILINOGEN NORMAL mg/dL (< 2)
[2020-11-09 17:21] LABS: BILIRUBIN NEGATIVE (NEGATIVE)
[2020-11-09 17:27] LABS: BACTERIA MANY HPF (NONE SEEN)
[2020-11-09] MEDS ORDERED: LEVOFLOXACIN500 MG PO (17:35)
== END 2020-11-09 18:05 | disposition home or self-care (01) ==
LOC: D.ER 14:32
PROVIDERS: Emergency Medicine
DX: S39.012A Strain of muscle, fascia and tendon of lower back, initial encounter (principal); S16.1XXA Strain of muscle, fascia and tendon at neck level, initial encounter; S20.211A Contusion of right front wall of thorax, initial encounter; S29.012A Strain of muscle and tendon of back wall of thorax, initial encounter; N39.0 Urinary tract infection, site not specified; V89.2XXA Person injured in unspecified motor-vehicle accident, traffic, initial encounter; Y93.9 Activity, unspecified; Y92.9 Unspecified place or not applicable; E11.9 Type 2 diabetes mellitus without complications; Z86.73 Personal history of transient ischemic attack (TIA), and cerebral infarction without residual deficits; Z79.84 Long term (current) use of oral hypoglycemic drugs

== ENCOUNTER 2020-12-07 18:28 | Observation (INO) | payer MEDICARE, MEDICAID ==
[~2020-12-07] VITALS: Ht 175.3 cm; Wt 115.0 kg
--- NOTE | ~2020-12-07 | HEMODYNAMI ---
PATIENT:SORAYA GONZALEZ MEDICAL RECORD: [id number] : 74 LOCATION:[facility] D.2132 [facility]# [id number] ADMISSION DATE: 12/07/20 Generatedon:112:03 Patient name: SORAYA GONZALEZ Patient #: [id number] : 1970 Date of study: 12/08/2020 Page: Of Hemodynamic Procedure Report Patient Data Patient Demographics Procedure consent was obtained First Name: SORAYA Gender: Female Last Name: CARLOS : 1970 Middle Initial: D Age: 50 year(s) Patient #: [id number] Race: Black SSN: [id number] Additional ID: [id number] Contact details Address: [address] [place] [address] State: [place] City: [place] Zip code: [address] Past Medical History Allergies Allergen Reaction Date Comments Reported Aspirin 08/26/2018 Other allergy 12/08/2020 ASA Admission Admission Data Admission Date: 12/07/2020 Admission Time: 20:48 Room #: D.2132 Insurance Payor: Medicare, Medicaid [facility] #: [id number] Height (in.): 68.9 BSA: 2.28 (m2) Height (cm.): 175 BMI: 37.55 (kg/m2) Weight (lbs.): 253.53 Weight (kg.): 115 Lab Results Lab Result Date: 12/08/2020 Lab Result Time: 0:00 Biochemistry Name Units Result Min Max BUN mg/dl 23 --(----)-* 7 18 Creatinine mg/dl 1.1 --(--*-)-- 0.6 1.3 eGFR ml/min 56 *-(----)-- 90 120 NONAFRICAN CBC Name Units Result Min Max Hemoglobin g/dl 10.3 *-(----)-- 13.5 17.5 Procedure Procedure Types Cath Procedure Diagnostic Procedure LHC LH w/Coronaries FFR/IVUS FFR Initial Sedation Charges Moderate Sedation 25-39 minutes PCI Procedure Hemochron ACT Test PTCA PTCA Initial Procedure Description Procedure Date Procedure Date: 12/08/2020 Procedure Start Time: 11:28 Procedure End Time: 12:02 Procedure Staff Name Function Andrew De Souza MD Performing Physician Polina Cat RT Monitor Yamila Rivas RT Scrub Kamini Lopes RN Nurse Procedure Data Cath Procedure Fluoroscopy Diagnostic fluoroscopy Total fluoroscopy Time: 3.3 time: 3.3 min min Diagnostic fluoroscopy Total fluoroscopy dose: 650 dose: 650 mGy mGy Contrast Material Contrast Material Type Amount (ml) Isovue 300 79 Entry Location Entry Primary Successful Side Size Upsize Upsize Entry Closure Succes sful Closure Location (Fr) 1 (Fr) 2 (Fr) Remarks Device Remarks Femoral Right 5 Fr 6 Fr Exoseal artery Short Estimated blood loss: 10 ml Diagnostic catheters Device Type Used For End Catheter Placement MULTIPACK JL 4.0 5Fr Procedure catheter MULTIPACK 3DRC 5Fr Procedure catheter MULTIPACK Pigtail 5 Fr Ventriculography catheter Procedure Complications No complications Procedure Medications Medication Administration Route Dosage Brilinta P.O. 90 mg Oxygen etCO2 Nasal cannula 2 l/min Lidocaine 2% added to field 20 Heparin Flush Bag added to field 2 bags (1000units/500ml NS) 0.9% NaCl I.V. 100 ml/hr Versed I.V. 1 mg Fentanyl I.V. 50 mcg Versed I.V. 1 mg Fentanyl I.V. 50 mcg Radial Cocktail added to field 1 syringe (Verapamil 2mg/Nitro 400mcg/Heparin 1500units) Heparin Bolus I.V. 5000 units Lopressor I.V. 5 mg Versed I.V. 1 mg Fentanyl I.V. 50 mcg Versed I.V. 1 mg Fentanyl I.V. 50 mcg Hemodynamics Rest BSA: 2.28 (m2) HGB: 10.3 (g/dl) O2 Consumption: Estimated: 238.25 (ml/min) O2 Co nsumption indexed: Estimated:104.5 (ml/min/m) Heart Rate: 86 (bpm) Pressure Samples Time Site Value (mmHg) Purpose Heart Use Rate(bpm) 11:37 AO 141/34(77) Snapshot 100 11:37 LV 146/-4,36 Snapshot 70 Gradients Valve Time Site Site Mean SEP/DFP Peak To Heart Use 1 2 (mmHg) (sec/min) Peak Rate (mmHg) (bpm) Aortic 11:37 LV AO 76 Snapshots Pre Cath Intra NCS Post Cath Vital Signs Time Heart Resp SPO2 etCO2 NIBP (mmHg) Rhythm Pain Sedation Rate (ipm) (%) (mmHg) Status Level (bpm) 11:22:25 101 26 95 0 No Cuff NSR 0 (11) 10(A) , No pain 11:25:07 101 21 93 31.9 160/108(128) NSR 0 (11) 10(A) , No pain 11:29:16 101 12 92 32.6 160/108(133) NSR 0 (11) 10(A) , No pain 11:33:24 101 11 97 37.8 158/100(121) NSR 0 (11) 9(A) , No pain 11:37:32 98 12 93 34.1 163/114(133) NSR 0 (11) 9(A) , No pain 11:41:42 99 13 95 34.1 156/110(133) NSR 0 (11) 9(A) , No pain 11:46:41 99 14 94 33.4 Measuring NSR 0 (11) 9(A) , No pain 11:53:12 84 12 98 30.4 138/88(117) NSR 0 (11) 10(A) , No pain 11:57:16 84 12 100 32.6 148/90(120) NSR 0 (11) 9(A) , No pain Medications Time Medication Route Dose Verified Delivered Reason Not es Effectiveness by by 11:13:34 Brilinta P.O. 90 mg Andrew Suárez Per physician pts St Anjum Lopes RN daily dose 11:24:26 Oxygen etCO2 2 l/min Andrew Suárez used for Nasal St Anjum Lopes RN procedure cannula 11:24:38 Lidocaine 2% added 20ml Andrew Morales for local to vial [facility] anesthetic field MD DOWD 11:24:45 Heparin Flush added 2 bags Andrew Morales used for Bag to [facility] procedure (1000units/500ml field MD DOWD NS) 11:24:51 0.9% NaCl I.V. 100 Andrew Suárez Per physician ml/hr [facility] Anjum Lopes RN, MD 11:25:46 Versed I.V. 1 mg Andrew Buffie for sedation St Anjum Lopes RN, MD 11:25:52 Fentanyl I.V. 50 mcg Andrew Buffie for sedation St Anjum Lopes RN, MD 11:29:27 Versed I.V. 1 mg Andrew Buffie for sedation St Anjum Lopes RN, MD 11:29:32 Fentanyl I.V. 50 mcg Andrew Buffie for sedation St Anjum Lopes RN, MD 11:32:33 Radial Cocktail added 1 Andrew Buffie not (Verapamil to syringe St Anjum Lopes RN used. 2mg/Nitro field 400mcg/Heparin 1500units) 11:33:44 Versed I.V. 1 mg Andrew Buffie for sedation St Anjum Lopes RN, MD 11:33:47 Fentanyl I.V. 50 mcg Andrew Buffie for sedation St Anjum Lopes RN, MD 11:40:56 Heparin Bolus I.V. 5000 Andrew Buffie for jose ified units St Anjum Lopes RN anticoagulation with dr MD pickett 11:44:20 Lopressor I.V. 5 mg Andrew Buffie Per physician St Anjum Lopes RN, MD 11:50:34 Versed I.V. 1 mg Andrew Buffie for sedation St Anjum Lopes RN, MD 11:50:38 Fentanyl I.V. 50 mcg Andrwe Buffie for sedation St Anjum Lopes RN, MD Procedure Log Time Note 10:36:41 Informed consent obtained and on chart 10:36:58 Procedure Status Urgent Heart Cath (IP). 10:36:59 Time tracking: Regular hours (M-F 7:00 - 5:00) 10:37:02 Plan of Care:Hemodynamics will remain stable., Cardiac rhythm will remain stable., Comfort level will be maintained., Respiratory function will remain adequate., Patient/ family verbilizes understanding of procedure., Procedure tolerated without complication., Recovers from procedure without complications.. 10:37:03 Kamini Lopes RN sent for patient. Start room use. 10:48:30 Patient Height : 68.9 inches 10:48:34 Patient Weight : 253.53 lbs 10:48:48 Insurance Payor : Medicare, Medicaid 10:49:58 Lab Result : Hemoglobin 10.3 g/dl 10:49:58 Lab Result : eGFR NONAFRICAN 56 ml/min 10:49:58 Lab Result : BUN 23 mg/dl 10:49:58 Lab Result : Creatinine 1.1 mg/dl 11:09:52 Patient received from Med II to CCL 1 Alert and oriented. Tansferred to table in Supine position. 11:09:54 Warm blankets applied, and joseph hugger turned on for patient comfort. 11:09:55 Correct patient and procedure confirmed by team. 11:09:55 ECG and BP/O2 sat monitors applied to patient. 11:10:02 H&P Date Dictated: 12/08/2020 Within 30 days and on chart., H&P Addendum completed by physician on day of procedure. (MUST COMPLETE FOR ALL OUTPATIENTS). 11:10:05 Pre-procedure instructions explained to patient. 11:10:07 Family unavailable. 11:10:09 Patient NPO since Midnight. 11:10:21 Patient allergic to Other allergyASA 11:10:24 Is the patient allergic to Iodine/contrast media? No. 11:10:43 Was the patient premedicated? Yes 11:10:44 Is patient on blood thinner?Yes 11:10:51 ACC The patient was administered the following blood thiners within the last 24 hours: ACCBrilinta 11:10:53 Patient diabetic? Yes. 11:10:54 If diabetic: On Metformin? Yes 11:10:57 If on Metformin: Last Dose? 12/07/2020 11:11:01 Patient not . Patient has had hysterectomy. 11:11:05 Snore? Yes 11:11:07 Sleep apnea? No 11:11:13 Dentures? No ? 11:11:26 Patient pain scale 0/10 ?. 11:11:37 IV patent on arrival in left forearm with 0.9% NaCl at KVO. 11:11:41 Lab results completed and on chart. 11:11:47 Right Radial & Right Groin area was prepped with chlora-prep and draped in sterile fashion 11:11:48 Alarms reviewed by R. N. 11:11:49 Sharps counted by scrub and verified by R.N. 11:13:34 Brilinta 90 mg P.O. was administered by Kamini Lopes RN; Per physician; pts daily dose Verbal order read back and verified. 11:21:35 Vital chart was started 11:21:43 Baseline sample Acquired. 11:21:46 Full Disclosure recording started 11:21:51 Physician arrived 11:21:52 --------ALL STOP TIME OUT------ 11:21:52 Final Timeout: patient, procedure, and site verified with staff and physician. All members of the team are in agreement. 11:21:55 Right Radial & Right Groin site verified by team. 11:22:00 Fire Safety Assessment: A--An alcohol-based skin anteseptic being used preoperatively., C--Open oxygen or nitrous oxide is being used., D--An ESU, laser, or fiber-optic light is being used. 11:23:13 Physical assessment completed. ASA score P 3 - A patient with severe systemic disease as per Andrew De Souza MD. 11:23:17 2) 60-89 Mildly reduced kidney function, and other findings (as for stage 1) point to kidney disease. 11:23:22 Maximum allowable contrast dose (3.7 X eGFR X 0.75)155 ml. 11:23:28 Sedation plan: IV Moderate Sedation Medication:Versed, Fentanyl 11:23:35 Use device set Radial Dx or PCI 11:23:40 ACIST Syringe (74821) opened to sterile field. 11:23:41 Medline Cath Pack ([id number]) opened to sterile field. 11:23:42 Bag Decanter (2002) opened to sterile field. 11:23:43 ACIST Hand Control (47359) opened to sterile field. 11:23:44 ACIST Manifold (49853) opened to sterile field. 11:23:44 Tegaderm 4 x 4 (1626W) opened to sterile field. 11:23:45 MBrace Wrist Support (429952741) opened to sterile field. 11:23:48 EMERALD Guide Wire (650-544) opened to sterile field. 11:23:49 SHEATH 6FR RAIN (5926051) opened to sterile field. 11:24:26 Oxygen 2 l/min etCO2 Nasal cannula was administered by Kamini Lopes RN; used for procedure; Verbal order read back and verified. 11:24:38 Lidocaine 2% 20ml vial added to field was administered by Andrew De Souza MD; for local anesthetic; Verbal order read back and verified. 11:24:45 Heparin Flush Bag (1000units/500ml NS) 2 bags added to field was administered by Andrew De Souza MD; used for procedure; Verbal order read back and verified. 11:24:51 0.9% NaCl 100 ml/hr I.V. was administered by Kamini Lopes RN; Per physician; Verbal order read back and verified. 11:25:46 Versed 1 mg I.V. was administered by Kamini Lopes RN; for sedation; Verbal order read back and verified. 11:25:52 Fentanyl 50 mcg I.V. was administered by Kamini Lopes RN; for sedation; Verbal order read back and verified. 11:28:18 Procedure started. 11:28:25 Local anesthetic to right radial artery with Lidocaine 2% by Andrew De Souza MD.INITIAL ACCESS ONLY 11:29:27 Versed 1 mg I.V. was administered by Kamini Lopes RN; for sedation; Verbal order read back and verified. 11:29:32 Fentanyl 50 mcg I.V. was administered by Kamini Lopes RN; for sedation; Verbal order read back and verified. 11:30:48 unable to access radial artery 11:31:07 Local anesthetic to right femoral artery with Lidocaine 2% by Andrew De Souza MD.ADDITIONAL ACCESS 11:32:11 SHEATH 5FR [place] (MHF030) opened to sterile field. 11:32:23 A 5 Fr sheath was inserted into the Right Femoral artery 11:32:31 J wire advanced. 11:32:33 Radial Cocktail (Verapamil 2mg/Nitro 400mcg/Heparin 1500units) 1 syringe added to field was administered by Kamini Lopes RN; ; not used. Verbal order read back and verified. 11:32:37 DIAGNOSTIC Multipack 5Fr catheter set (NO2242) opened to sterile field. 11:33:12 A MULTIPACK JL 4.0 5Fr catheter was advanced over the wire and used for Procedure. 11:33:14 LCA angiography performed. 11:33:44 Versed 1 mg I.V. was administered by Kamini Lopes RN; for sedation; Verbal order read back and verified. 11:33:47 Fentanyl 50 mcg I.V. was administered by Kamini Lopes RN; for sedation; Verbal order read back and verified. 11:34:44 Catheter removed. 11:34:52 A MULTIPACK 3DRC 5Fr catheter was advanced over the wire and used for Procedure. 11:35:28 RCA angiography performed. 11:35:49 Catheter removed. 11:35:58 A MULTIPACK Pigtail 5 Fr catheter was advanced over the wire and used for Ventriculography. 11:36:37 LV angiography performed. 11:36:43 Zero performed for pressure channel P1 11:37:30 EF : 20 % 11:39:38 SHEATH 6FR [place] (LEK218) opened to sterile field. 11:39:46 Sheath upsized to a 6 Fr Short. 11:40:35 INFLATOR Merit BasixCompak (HD5749) opened to sterile field. 11:40:37 [place] OmniWire (23449) opened to sterile field. 11:40:39 GUIDE 6FR HS I catheter (LA6HSI) opened to sterile field. 11:40:47 Proceeding to intervention. 11:40:56 Heparin Bolus 5000 units I.V. was administered by Kamini Lopes RN; for anticoagulation; verified with dr pickett Verbal order read back and verified. 11:41:15 Pre PCI Site: [place] mRCA has 80% stenosis. 11:41:25 6 Fr HS1SH guide catheter was inserted over the wire 11:41:37 omni wire advanced. 11:41:40 Wire advanced across lesion. 11:43:00 Zero performed for pressure channel P1 11:44:20 Lopressor 5 mg I.V. was administered by Kamini Lopes RN; Per physician; Verbal order read back and verified. 11:46:18 Inflate balloon Inflation number: 1 A EUPHORA 3.0 x 20 Balloon ([id number]) was prepped and advanced across the Mid RCA 80, then inflated to 12 CHELSIE for 0:25 (min:sec) . 11:46:48 Inflation number: 2 The EUPHORA 3.0 x 20 Balloon ([id number]) was reinflated across the Mid RCA , to 12 CHELSIE for 0:20 (min:sec) . 11:47:14 Inflation number: 3 The EUPHORA 3.0 x 20 Balloon ([id number]) was reinflated across the Mid RCA , to 12 CHELSIE for 0:16 (min:sec) . 11:47:28 Balloon removed over the wire. 11:48:30 EXOSEAL 6Fr (EX600) opened to sterile field. 11:49:50 Wire removed. 11:49:51 Guide catheter removed. 11:50:34 Versed 1 mg I.V. was administered by Kamini Lopes RN; for sedation; Verbal order read back and verified. 11:50:38 Fentanyl 50 mcg I.V. was administered by Kamini Lopes RN; for sedation; Verbal order read back and verified. 11:51:59 mRCA lesion measured at .90 with IFR 11:52:21 Sheath removed intact; hemostasis achieved with Exoseal to the Right Femoral artery. 11:52:24 Procedure ended.(Physican Out) 11:52:35 Fluoroscopy time 03.30 minutes. 11::40 Fluoroscopy dose: 650 mGy 11:52:40 Flurop Dose total: 650 11:52:45 Dose Area Product 31649 mGy/cm. 11:52:52 Contrast amount:Isovue 300 79ml. 11:52:54 Maximum allowable dose exceeded? No. 11:52:55 Sharps counted by scrub and verified by R.N. 11:52:58 Insertion/operative site no bleeding no hematoma. 11:53:06 Post procedure rhythm: unchanged. 11:53:18 Estimated blood loss: 10 ml 11:53:22 Post procedure instruction explained to patient.Patient verbalizes understanding. 11:54:45 Procedure type changed to Cath procedure, Diagnostic procedure, LHC, C w/Coronaries, FFR/IVUS, FFR Initial, Sedation Charges, Moderate Sedation 25-39 minutes, PCI procedure, Hemochron ACT Test, PTCA, PTCA Initial 11:55:33 zephyr band was opened to the field and not needed for post procedure. 11:55:45 ZEPHYR REGULAR TR BAND (951924) opened to sterile field. 11:55:50 Procedure and supply charges have been captured, reviewed, submitted and are correct. 11:59:01 ACT drawn and resulted at 226 seconds. (normal therapeutic range 180-240 seconds). 11:59:26 Procedure Complication : No complications 11:59:29 Vital chart was stopped 11:59:32 [facility] Findings: MVD- PCI performed (see procedure note) 12:02:07 Operative report dictated upon procedure completion. 12:02:08 See physician's report for complete and final results. 12:02:10 Report given to Pre/Post Procedure Room. 12:02:13 Patient transfered to Pre/Post Procedure Room with Stretcher. 12:02:16 Procedure ended. 12:02:16 Full Disclosure recording stopped 12:02:20 End room use (Document Last) 12:02:56 End room use (Document Last) 12:03:22 End room use (Document Last) Intervention Summary Intervention Notes Time ActionType Lesion and Equipment Action# Pressure Duration Attributes Used 11:46:18 Inflate Mid RCA EUPHORA 1 12 00:26 balloon 3.0 x 20 Balloon ([id number]) 11:46:48 Reinflate Mid RCA EUPHORA 2 12 00:20 balloon 3.0 x 20 Balloon ([id number]) 11:47:14 Reinflate Mid RCA EUPHORA 3 12 00:16 balloon 3.0 x 20 Balloon ([id number]) Device Usage Item Name Manufacture Quantity Catalog Hospital Part Current Minima l Lot# / Number Charge Number Stock Stock Serial# Code ACIST Acist 1 74090 559003 673534 456378 20 Syringe Medical (09973) Systems Inc Medline Medline 1 [id number] 853968 43980 482797 5 Cath Pack ([id number]) Bag Microtek 1 691149 77052 931672 5 Decanter Medical Inc. () ACIST Hand Acist 1 38189 330746 059820 486867 5 Control Medical (15419) Systems Inc ACIST Acist 1 02406 057106 493223 538638 5 Manifold Medical (20114) Systems Inc Tegaderm 4 3M 1 1626W 698832 521177 492055 5 x 4 (1626W) MBrace Advanced 1 140-0250-00 521892 42797 475982 5 Wrist Vascular Support Dynamics ([id number]) EMERALD Cardinal 1 502-455 580961 045688 962695 5 Guide Wire Health (502-455) SHEATH 6FR Cardinal 1 3600930 763955 5670485 139305 5 RAIN Health (8509895) SHEATH 5FR Terumo 1 APB177 035256 461141 915897 5 [place] (MDZ211) DIAGNOSTIC Cardinal 1 QO7037 144325 76519 052734 30 Multipack Health 5Fr catheter set (OQ1586) MULTIPACK Cardinal 1 630811 5 JL 4.0 5Fr Health catheter MULTIPACK Cardinal 1 781990 5 3DRC 5Fr Health catheter MULTIPACK Cardinal 1 345252 5 Pigtail 5 Health Fr catheter SHEATH 6FR Terumo 1 WRM053 664729 548500 178444 40 [place] (WKN541) INFLATOR Merit 1 KO1647 070245 939622 242745 15 Merit Medical BasixCompak (JP4319) [place] 1 4838941 594920 72445 9979 5 OmniWire (71424) GUIDE 6FR Medtronic 1 LA6HSI 043502 52256 763908 1 HS I catheter (LA6HSI) EUPHORA 3.0 Medtronic 1 [id number] 935959 328008 952503 5 [id number] x 20 Balloon ([id number]) EXOSEAL 6Fr Cardinal 1 EX600 691279 318190 309277 10 (EX600) Health ZEPHYR Cardinal 1 899770 289729 1102244 934800 5 REGULAR TR Health BAND (155733) Signature Audit [place] Stage Time Signature Unsigned Intra-Procedure 12/08/2020 Polina Cat 12:02:56 PM RT(R) Intra-Procedure 12/08/2020 Kamini Lopes RN 12:03:22 PM Intra-Procedure 12/08/2020 Andrew Gil 12:03:50 PM Anjum DOWD [facility] [address] [facility] [place] [address]
[2020-12-07 19:03] LABS: BASOPHILS 0.1 % (0-2); HEMATOCRIT 32.7 % (36.0-48.0); HEMOGLOBIN 10.4 g/dL (12-16); IMMATURE GRANULOCYTES 0.2 % (0-5); LYMPHOCYTE ABS# 2.11 10x3/uL (1.18-3.74); LYMPHOCYTES 21.6 % (15-50); MCH 27.6 pg (26.0-34.0); MCHC 31.8 g/dL (31.0-37.0); MCV 86.7 fL (80.0-100.0); MEAN PLATELET VOLUME 11.4 fL (7.4-10.4); MONOCYTES 6.1 % (2-11); NEUTROPHIL ABS# 6.84 10x3/uL (1.56-6.13); PLATELET COUNT 228 10x3/uL (130-400); RBC 3.77 10x6/uL (4.00-5.40); RDW 14.2 % (11.5-14.5); WBC 9.8 10x3/uL (4.8-10.8)
[2020-12-07 19:13] LABS: APTT 32.6 SECONDS (22.8-39.4); INR 1.09 (0.85-1.17); PROTIME 13.1 SECONDS (11.6-15.0)
[2020-12-07 19:14] LABS: CALC OSMOLALITY 282 mosm/kg (275-300); CALCIUM 8.7 mg/dL (8.5-10.1); CARBON DIOXIDE 27.5 mmol/L (21.0-32.0); CHLORIDE - SERUM 101 mmol/L (98-107); CREATININE - SERUM 1.3 mg/dL (0.6-1.3); GLUCOSE 308 mg/dL (74-106); POTASSIUM - SERUM 4.8 mmol/L (3.5-5.1); SODIUM 133 mmol/L (136-145); UREA NITROGEN 26 mg/dL (7-18); eGFR NON AFRICAN AMERICAN 46 mL/min (90-120)
[2020-12-07 19:30] LABS: ALBUMIN 2.9 g/dL (3.4-5.0); ALKALINE PHOSPHATASE 175 U/L (30-120); ALT (SGPT) 14 U/L (10-68); BILIRUBIN - TOTAL 0.28 mg/dL (0.2-1.3); CKMB 1.8 U/L (0.0-3.6); CREATINE KINASE 157 UL (21-215); MAGNESIUM - SERUM 1.9 mg/dL (1.8-2.4); PROTEIN - SERUM 7.1 g/dL (6.4-8.2); TROPONIN-I < 0.017 ng/mL (0.000-0.060)
[2020-12-07 20:16] VITALS: BP 135/77
[2020-12-07 21:30] VITALS: BP 141/93
[2020-12-07 22:30] VITALS: BP 145/89
[2020-12-07 23:10] LABS: % SATURATION 12 % (15-55); IRON 38 ug/dl (35-150); TOTAL IRON BIND CAPACITY 311 ug/dl (260-445); UNSAT IRON BIND CAPACITY 273 ug/dl (150-375)
[2020-12-07 23:30] VITALS: BP 152/99
[2020-12-08] VITALS (7 sets, daily range): BP systolic 139–167; BP diastolic 67–103; Ht 175.3 cm; Wt 115.0 kg
--- NOTE | 2020-12-08 00:38 | NUR ---
RESTING WITH EYES CLOSED RESP EVEN UNLABORED. NO DISTRESS NOTED
--- NOTE | 2020-12-08 05:53 | NUR ---
REPORT CALLED TO REMA MAGDALENO
--- NOTE | 2020-12-08 06:39 | NUR ---
PT TO ROOM 2131 PLEASANT/COOPERATIVE DENIES ANY CHEST PAIN AT PRESENT PIID TO LEFT AC
--- NOTE | 2020-12-08 07:00 | NUR ---
PT LYING IN BED TALKING TO STATISTICS TEACHER. RESP EVEN AND UNLABORED. AAOX4. DENIES NEEDS AT THIS TIME. CLIR. BED IN LOWEST POSITION. SIDE RAILS X2
[2020-12-08 07:39] LABS: BASOPHILS 0.1 % (0-2); EOSINOPHILS 2.2 % (0-7); HEMATOCRIT 33.3 % (36.0-48.0); HEMOGLOBIN 10.3 g/dL (12-16); IMMATURE GRANULOCYTES 0.1 % (0-5); LYMPHOCYTE ABS# 2.28 10x3/uL (1.18-3.74); LYMPHOCYTES 28.3 % (15-50); MCH 27.4 pg (26.0-34.0); MCHC 30.9 g/dL (31.0-37.0); MCV 88.6 fL (80.0-100.0); MEAN PLATELET VOLUME 10.9 fL (7.4-10.4); MONOCYTES 6.4 % (2-11); NEUTROPHIL ABS# 5.07 10x3/uL (1.56-6.13); NEUTROPHILS 62.9 % (40-80); PLATELET COUNT 202 10x3/uL (130-400); RBC 3.76 10x6/uL (4.00-5.40); RDW 14.4 % (11.5-14.5); WBC 8.1 10x3/uL (4.8-10.8)
[2020-12-08 08:05] LABS: ALBUMIN 2.8 g/dL (3.4-5.0); BILIRUBIN - TOTAL 0.31 mg/dL (0.2-1.3); CARBON DIOXIDE 25.6 mmol/L (21.0-32.0); CREATININE - SERUM 1.1 mg/dL (0.6-1.3); POTASSIUM - SERUM 4.6 mmol/L (3.5-5.1); PROTEIN - SERUM 6.4 g/dL (6.4-8.2); TROPONIN-I 0.018 ng/mL (0.000-0.060)
[2020-12-08 09:15] LABS: CHOL - HDL RATIO 3.1 ratio (2.3-4.1); LDL-HDL RATIO 1.9 ratio (1.5-3.5)
--- NOTE | 2020-12-08 11:05 | NUR ---
PT LEFT UNIT FOR HEART CATH ACCOMPANIED BY HOSPITAL STAFF. PRE OP MEDS ADMINISTERED PER ORDER
--- NOTE | 2020-12-08 12:12 | NUR ---
PT ARRIVES TO ROOM 10 VIA STRETCHER S/P HEART CATH. SEE PATTERN LEASE INSPECTOR. PT PLACED ON MONITORS ALARMS ON. IV INFUSING PER ORDERS, CALL LIGHT WITHIN REACH.
--- NOTE | 2020-12-08 12:20 | NUR ---
PT IS AROUSABLE TO VERBAL AND TACTILE STIMULATION, VSS, SR, RIGHT GROIN SOFT WITHOUT OOZING OR BLEEDING , NO PALPABLE HEMATOMA , RIGHT LOWER EXTREMITY WARM WITH PALPABLE PEDAL PULSE, IV INFUSING PER ORDERS, PT GIVEN PLAN OF CARE, PT DENIES PAIN OR NEEDS AT THIS TIME, CALL LIGHT WITHIN REACH
--- NOTE | 2020-12-08 12:42 | NUR ---
EYES CLOSED AROUSES EASILY TO VERBAL, VSS, SR, RIGHT GROIN SOFT NO OOZING OR BLEEDING , NO PALPABLE HEMATOMA, EXTREMITY WARM AND PEDAL PULSE PALPABLE, DENIES PAIN OR NEEDS, PT REQUEST PO FLUIDS/GIVEN. IV INFUSING , CALL LIGHT WITHIN REACH
--- NOTE | 2020-12-08 12:57 | NUR ---
EYES CLOSED AROUSES TO VERBAL, VSS, NSR, RIGHT SOFT WITHOUT OOZING OR BLEEDING, NO PALPABLE HEMATOMA, PEDAL PULSE PALPABLE, DENIES PAIN OR NEEDS, CALL LIGHT WITHIN REACH
[2020-12-08] MEDS ORDERED: COZAAR50 MG (13:03)
[2020-12-08] MEDS ORDERED: COREG6.25 MG (13:03)
[2020-12-08] MEDS ORDERED: COREG6.25 MG PO (13:08)
[2020-12-08] MEDS ORDERED: COZAAR50 MG PO (13:08)
--- NOTE | 2020-12-08 13:15 | NUR ---
PT RESTING QUIETLY , VSS, SR, RIGHT GROIN SOFT WITHOUT OOZING OR BLEEDING, NO PALPABLE HEMATOMA, PEDAL PULSE PALPABLE, DENIES PAIN OR NEEDS, CALL LIGHT WITHIN REACH , DTR AT BEDSIDE, UPDATED ON PLAN OF CARE
--- NOTE | 2020-12-08 13:45 | NUR ---
EYES CLOSED AROUSES EASILY TO VERBAL, VSS, SR, RIGHT GROIN SOFT WITH NO OOZING OR BLEEDING NOTED, NO PALPABLE HEMATOMA, PEDAL PULSE PALPABLE, DENIES PAIN OR NEEDS, CALL LIGHT WITHIN REACH
--- NOTE | 2020-12-08 14:15 | NUR ---
DR HODGES AT BEDSIDE TO SEE PT
--- NOTE | 2020-12-08 14:45 | NUR ---
RIGHT GROIN SOFT NO OOZING OR BLEEDING, NO PALPABLE HEMATOMA, PEDAL PALPABLE, DENIES PAIN OR NEEDS, CALL LIGHT WITHIN REACH
--- NOTE | 2020-12-08 15:00 | NUR ---
PT PLACED IN SEMI FOWLERS POSITION , SANDWHICH AND DRINK GIVEN, PT DENIES PAIN OR NEEDS.
--- NOTE | 2020-12-08 15:30 | NUR ---
PT SITTING UP IN BED, TALKING ON PHONE, VSS, SR, RIGHT GROIN SOFT WITH NO OOZING OR BLEEDING , NO PALPABLE HEMATOMA, PEDAL PULSE PALPABLE, DENIES PAIN OR NEEDS, CALL LIGHT WITHIN REACH, CONSUMED 100%
--- NOTE | 2020-12-08 15:45 | NUR ---
DISCHARGE TEACHING REVIEWED AND PT VERBALIZED UNDERSTANDING, PT DENIES PAIN OR NEEDS, VSS, SR, RIGHT GROIN SOFT OPSITE C/D/I, NO PALPABLE HEMATOMA, PEDAL PULSE PALPABLE, CALL LIGHT WITHIN REACH.
--- NOTE | 2020-12-08 16:00 | NUR ---
PIV REMOVED FROM LEFT AC CATHETER INTACT 2 X 2 DRESSING APPLIED, PT UP TO DRESS ASSISTANCE OFFERED PT DECLINES, AMBULATES TO BATHROOM WITH ASSISTANCE FROM THIS NURSE, RIGHT GROIN STABLE WITH DRESSING C/D/I
--- NOTE | 2020-12-08 16:10 | NUR ---
PT DISCHARGED TAKEN TO FAMILY CAR VIA WHEELCHAIR, PT DENIES PAIN OR NEEDS AT THIS TIME, PT HAS NO QUESTIONS OR CONCERNS ABOUT DISCHARGE INSTRUCTIONS
--- NOTE | 2020-12-08 17:14 | CN ---
PATIENT NAME:SORAYA GONZALEZ MEDICAL RECORD: [id number] : 74 LOCATION:[facility] ADMIT DATE: 12/07/20 ACCOUNT: [id number] CONSULTING PHYSICIAN: YANELY LIU MD REFERRING PHYSICIAN: EMILY HODGE MD DATE OF CONSULTATION: 12/08/2020 HISTORY OF PRESENT ILLNESS: A 50-year-old female with history of coronary artery disease status post most recently intervention via Dr. Nunez approximately 3 years ago in 2018, history of hypertension, hyperlipidemia, diabetes mellitus, quit smoking as of yesterday, had rapid progression of her typical angina, symptomatology beginning Friday with chest tightness and pressure, marked associated symptomatology with nausea, diaphoresis as well, presented to the ER. We are asked to see her concerning cardiovascular status. PAST MEDICAL HISTORY: Includes; 1. History of coronary artery disease as described above. 2. Hypertension. 3. Hyperlipidemia. 4. Diabetes mellitus. ALLERGIES: ASPIRIN. MEDICATIONS: Include Flexeril 10 mg p.o. b.i.d., Brilinta 90 mg p.o. b.i.d., atorvastatin 20 mg p.o. every day, Neurontin 800 t.i.d., insulin per scale, metformin half gram b.i.d. SOCIAL HISTORY: Quit smoking as of yesterday. Previously a pack a day, nondrinker. Is able to take care of all her ADLs. No set exercise program. REVIEW OF SYSTEMS: The patient reports easy bruising but reports no swollen glands. The patient reports no fever, no night sweats, no significant weight gain, no significant weight loss. No significant exercise tolerance. The patient reports no dry eyes, no irritation, no vision change. Patient reports no difficulty hearing and no ear pain. Patient reports no frequent nose bleeds or nose and sinus problems. Patient reports on arm pain on exertion. No shortness of breath while lying down. No history of heart murmur. Patient reports no cough, no wheezing or coughing up blood. Patient reports no abdominal pain, no vomiting. Normal appetite. No diarrhea and not vomiting blood. No nausea and no constipation. Patient reports no incontinence. No difficulty urinating. No hematuria. No increased frequency. Patient reports no muscle aches. No weakness, no arthralgias, no back pain. No swelling of the extremities. Patient reports no abnormal mole, no jaundice, no rashes. Reports no loss of consciousness. No weakness and no numbness. No seizures, dizziness, or headaches. The patient reports no depression, no sleep disturbance, feeling safe in a relationship and no alcohol abuse. Patient reports on fatigue. Reports no runny nose or sinus pressure. No itching, no hives, and no frequent sneezing. PHYSICAL EXAMINATION: GENERAL: Well-developed, well-nourished, no acute distress, appears stated age. VITAL SIGNS: Blood pressure 139/67, pulse 96 and regular. HEENT: Normocephalic, nonicteric. NECK: No bruits noted. HEART: Regular. S4 gallop is noted. CONSULT REPORT [id number] SORAYA GONZALEZ LUNGS: Good air excursion. ABDOMEN: Soft, nontender. EXTREMITIES: Pulses are preserved, 2+, with no edema. DIAGNOSTIC DATA: EKG shows nonspecific ST-T changes, LVH. IMPRESSION: Acute coronary syndrome, known history of coronary disease, rapid progression of symptom. PLAN: For angiography and intervention based on the above. TRANSINT:[id number] Voice Confirmation ID: [id number] DOCUMENT ID: [id number] YANELY LIU MD at 1714 CC: [id number] DICTATION DATE: 12/08/20907 ANGLE DOZER OPERATOR: 12/08/20 1117 DIS IN 12/08/20 [facility] [address] [place] [address]
--- NOTE | 2020-12-08 17:14 | EC ---
PATIENT:SORAYA GONZALEZ DATE OF SERVICE: 12/07/20 SEX: F MEDICAL RECORD: [id number] DATE OF : 74 [facility]GE [facility] 50 ADMISSION DATE: 12/07/20 REFERRING PHYSICIAN: INTERPRETING PHYSICIAN: YANELY LIU MD ECHOCARDIOGRAM REPORT ECHO CHARGES 4 ECHO COMPLETE Date: 12/08/20 CLINICAL DIAGNOSIS: PULMONARY EDEMA ECHOCARDIOGRAPHIC MEASUREMENTS (adult normal given) AC root (d.<3.7cm) 3.1 cm LV Septum d (<1.2 cm> 1.0 cm Valve Excursion 2.0 cm LV Septum (systole) 0.8 cm Left Atria (s.<4.0cm> 3.6 cm LVPW d(<1.2cm) 1.2 cm RV (d.<2.3cm) 2.4 cm LVPW (sytole) 1.3 cm LV diastole(<5.6CM) 6.5 cm MV E-F(>70mm/sec) cm LV systole 5.2 cm LVOT Diameter 1.7 cm MV exc.(>10mm) 1.4 cm Est.ejection fraction (50-75%) % DOPPLER: LVIT cm/sec A 92 cm/sec E 82 cm/sec LA cm/sec RVSP 23 mmHg LVOT 87 cm/sec AOP1/2T m/s Asc. Ao 105 cm/sec RVOT 62 cm/sec RA cm/sec PA 72 cm/sec AV Gradient Peak 4.4 mmHg AV Mean 2.1 mmHg AV Area 1.9 cm MV Gradient Peak 5.1 mmHg MV Mean 2.5 mmHg MV Area cm COMMENTS: Loan Analyst: Alfonzo RODRIGUEZ Business Office Representative: 3 Dr. Ray TAPE# Pericardial Effusion N DATE OF SERVICE: Adequate 2D, color-flow imaging, spectral Doppler, and M-Mode FINDINGS: No LVH. LV internal dimension is dilated. LV is globally hypokinetic with reduced EF. Estimated EF 30% to 35%. Aortic valve is tricuspid. No evidence of stenosis by Doppler interrogation. Left atrium is normal at 3.6 cm. Mitral valve shows no prolapse. Trace MR. Right side is grossly normal. Trace TR. ECHOCARDIOGRAM REPORT [id number] SORAYA GONZALEZ TRANSINT:[id number] Voice Confirmation ID: [id number] DOCUMENT ID: [id number] YANELY LIU MD at 1714 CC: [id number] DICTATION DATE: 12/08/20 1227 MORTGAGE ADVISOR: 12/08/20 1335 DIS IN 12/08/20 [place] [id number] [place] [id number]
--- NOTE | 2020-12-10 09:56 | OP ---
PATIENT NAME: SORAYA GONZALEZ MEDICAL RECORD: [id number] :74 [facility] AD[facility]ION DATE:12/07/20 SURGEON: YANELY LIU MD DATE OF OPERATION: 12/08/2020 PROCEDURES: Left heart catheterization, selective coronary angiography plus IFR wire to the right plus COMPUTER PROCESSING SCHEDULER to the right. FINDINGS: Left ventriculography global hypokinesis, reduced LV function 20% to 25%. CORONARY ANATOMY: LEFT MAIN: Left main is free of disease. LAD: LAD is free of disease in diagonal system. CIRCUMFLEX: Free of disease in the marginal system. 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 After 5-Gabonese sheath was exchanged for a 6-Gabonese sheath, a hockey-stick guiding catheter with side holes provided excellent guide catheter followed by the IFR wire was placed distal to the lesion. Balloon used was a 3.0 x 20 mm Rice balloon up to 12 atmospheres up and down the previous stent. This shows a marked resolution of the in-stent restenosis of 90% with pumping of the distal vasculature. IFR was 0.89 at the end of the procedure. It was felt to be significantly improved. Sheath closed with ExoSeal device. The patient was previously on Brilinta. 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 Consider addition of aldosterone blockade in the near future. TRANSINT:[id number] Voice Confirmation ID: [id number] DOCUMENT ID: [id number] YANELY LIU MD at 0956 CC: [id number] DICTATION DATE: 12/08/20 1207 STRETCHING MACHINE OPERATOR: 12/08/202110 DIS IN 12/08/20 [facility] [address] [place] [id number]
== END 2020-12-08 16:10 | disposition home or self-care (01) ==
LOC: D.ER 18:28 → D.EDHOLD 19:04 → OBSVTIME 19:04 → D.M2 20:48 → D.EDHOLD 20:48 → OBSVTIME 20:48 → D.M2 12-08 05:40 → D.CLR 12-08 12:12
PROVIDERS: Family Medicine; Internal Medicine Interventional Cardiology; ADMIT Emergency Medicine; ATTEND Emergency Medicine
DX: I25.110 Atherosclerotic heart disease of native coronary artery with unstable angina pectoris (principal); J81.1 Chronic pulmonary edema; D64.9 Anemia, unspecified; Z86.73 Personal history of transient ischemic attack (TIA), and cerebral infarction without residual deficits; E11.9 Type 2 diabetes mellitus without complications; E78.5 Hyperlipidemia, unspecified; E66.9 Obesity, unspecified; Z79.84 Long term (current) use of oral hypoglycemic drugs

== ENCOUNTER → 2021-02-02 08:01 | Outpatient (CLI) | payer MEDICARE, MEDICAID ==
[2020-12-08 07:30] VITALS: BMI 37.4
--- NOTE | ~2021-02-02 | EC ---
PATIENT:SORAYA GONZALEZ DATE OF SERVICE: 02/02/21 SEX: F MEDICAL RECORD: [id number] DATE OF : 74 [facility]ATION[facility] AGE OF PATIENT: 50 ADMISSION DATE: 02/02/21 REFERRING PHYSICIAN: INTERPRETING PHYSICIAN: YANELY LIU MD ECHOCARDIOGRAM REPORT ECHO CHARGES 4 ECHO COMPLETE Date: 02/02/21 CLINICAL DIAGNOSIS: CAD/CARDIOMYOPATHY ASSESS EF AND MITRAL REGURG ECHOCARDIOGRAPHIC MEASUREMENTS (adult normal given) AC root (d.<3.7cm) 3.5 cm LV Septum d (<1.2 cm> 1.2 cm Valve Excursion 1.7 cm LV Septum (systole) 1.3 cm Left Atria (s.<4.0cm> 4.2 cm LVPW d(<1.2cm) 1.3 cm RV (d.<2.3cm) 4.2 cm LVPW (sytole) 1.6 cm LV diastole(<5.6CM) 6.3 cm MV E-F(>70mm/sec) cm LV systole 5.1 cm LVOT Diameter 1.8 cm MV exc.(>10mm) 1.9 cm Est.ejection fraction (50-75%) % DOPPLER: LVIT cm/sec A 63.0 cm/sec E 90.0 cm/sec LA cm/sec RVSP 40 mmHg LVOT 66 cm/sec AOP1/2T m/s Asc. Ao 104 cm/sec RVOT 51 cm/sec RA cm/sec PA 90 cm/sec AV Gradient Peak 4.35 mmHg AV Mean 2.08 mmHg AV Area 1.9 cm MV Gradient Peak 3.64 mmHg MV Mean 1.47 mmHg MV Area cm COMMENTS: Linux Developer: 2 IKE FRANK Commercial Front Load Driver: 3 Dr. Ray TAPE# PACS Pericardial Effusion N DATE OF SERVICE: Adequate 2D, color flow imaging, spectral Doppler, and M-Mode. FINDINGS: LVH is present. LV internal dimensions are dilated. LV is globally hypokinetic. EF is reduced at 30% to 35%. Aortic valve is tricuspid. No evidence of stenosis by Doppler interrogation. Left atrium is mildly dilated at 4.2 cm. Mitral valve shows no prolapse. Mild MR. Right side is grossly normal. Mild TR. ECHOCARDIOGRAM REPORT [id number] SORAYA GONZALEZ TRANSINT:[id number] Voice Confirmation ID: [id number] DOCUMENT ID: [id number] YANELY LIU MD CC: [id number] DICTATION DATE: 02/05/21 1050 RETAIL LOAN ORIGINATOR ASSISTANT: 02/05/211923 DEP CLI 02/02/21 [place] [id number] [place] [id number]
[~2021-02-02 08:01] MED LIST changes: +COREG6.25 MG; +COREG6.25 MG PO; +COZAAR50 MG; +COZAAR50 MG PO
== END | disposition home or self-care (01) ==
LOC: D.HCCECHO 08:01
PROVIDERS: ATTEND Internal Medicine Interventional Cardiology
DX: I25.10 Atherosclerotic heart disease of native coronary artery without angina pectoris (principal); I42.9 Cardiomyopathy, unspecified